=== PATIENT | male | born 1960 | race Caucasian/White ===

== ENCOUNTER 2023-09-30 12:18 | Observation (INO) | payer SELFPAY ==
[2023-09-30] VITALS (53 sets, daily range): BP systolic 137–188; BP diastolic 70–102; PULSE 75–104; RESP 12–28; TEMP 36.4–36.9; O2SAT 98
--- NOTE | 2023-09-30 12:15 | RT.EKG_ITS ---
APPROVED REPORT Exam: Resting ECG Reason for Exam: Chest Pain Patient Location: E HR:90 bpm ECG Measurements Heart Rate 90 AXIS ND 174 P 71 QRSd 102 QRS 70 QT 365 T 39 QTc 447 Conclusion Sinus rhythm...normal P axis, V-rate 60- 99 Low voltage, extremity leads...all extremity leads <0.5mV Normal sinus rhythm at a rate of 90 interventricular conduction delay. Normal axis. ND and QTc with in normal limits. Mild left lateral chest wall ST segment depressions. Low voltage limb leads. No prior for comparison. No acute injury pattern.
--- NOTE | 2023-09-30 12:40 | W.ED.GENAD ---
Discharge Plan Discharge Details Chief Complaint: Chest Pain Primary Care Provider: Unknown,Unknown ED Provider: Pipe Wilson Home Meds and New Rx's Prescriptions: No Action No Known Home Meds HPI General Date/Time Provider Initiated Documentation: 09/30/23 12:40. HPI Narrative: MDM Chronic conditions affecting the care of the patient: [] History obtained from an outside historian: [] External record review: [] Diagnostic interpretations performed by me: Per my independent interpretation chest x-ray shows: Per my independent interpretation EKG shows: Normal sinus rhythm at a rate of 90 interventricular conduction delay. Normal axis. AK and QTc within normal limits. Mild left lateral chest wall ST segment depressions. Low voltage limb leads. No prior for comparison. No acute injury pattern. ]Medications: [] Social determinants of health affecting disposition: [] Management discussed with: [] Treatment/interventions considered: [] Response to therapies provided: [] HPI [ ] Exam General: Well-appearing in no acute distress speaking in complete sentences. Head: Normocephalic, atraumatic. Eye:[Pupils equal, round reactive to light.] Extraocular eye movements intact. No conjunctival injection. No scleral icterus. Ear, nose, mouth, throat: Grossly normal inspection. Normal voice, handling secretions normally. Neck: Trachea midline. Cardiovascular: Well-perfused distal extremities. Respiratory: Nonlabored respiration. Gastrointestinal: Nondistended abdomen. Musculoskeletal: No edema. Moving all 4 extremities spontaneously. Skin: Normal for age and race, grossly normal temperature and turgor. No acute rash. Neurologic: Alert and appropriate, no apparent acute deficits. Psychiatric: Mood and manner are appropriate. Grooming and personal hygiene are appropriate. Related Data Home Medications Medication Instructions Recorded Confirmed Unknown [No Known Home Meds] 11/18/15 09/30/23 Allergies Allergy/AdvReac Type Severity Reaction Status Date / Time No Known Allergies Allergy Unverified 09/30/23 12:26 General Stated Complaint: Chest Pain ANYI: 2 Course Vital Signs Vital signs: Vital Signs Temperature 36.4 C 09/30/23 12:20 Pulse 93 H 09/30/23 12:20 Respiratory Rate 28 H 09/30/23 12:20 Blood Pressure 188/93 H 09/30/23 12:20 Pulse Oximetry 98 09/30/23 12:20 Temperature 36.4 C 09/30/23 12:20 Pulse 93 H 09/30/23 12:20 Pulse 88 09/30/23 12:34 Respiratory Rate 17 09/30/23 12:34 Respiratory Effort Normal 09/30/23 12:26 Blood Pressure 188/93 H 09/30/23 12:20 Pulse Oximetry 98 09/30/23 12:20 Pain Level 5 09/30/23 12:20 Medical Decision Making Quality:SDOH Health Related Social Needs: No Data to Display PFSH All Active Problems (Updated 03/03/19 @ 12:03 by Annelise Bull NP) Dupuytren's contracture of left hand (Chronic) Excessive drinking of alcohol (Chronic) Chewing tobacco use (Chronic) Reducible left inguinal hernia (Chronic) Surgical History (Updated 03/03/19 @ 09:58 by Annelise Bull NP) S/P vasectomy (~1997) Family History (Updated 03/03/19 @ 10:08 by Annelise Bull NP) Mother Hypertension Dementia Father , at 56 of lung cancer Lung cancer Sister Colon cancer Cervical cancer Sister No problems noted. Son No problems noted. Son No problems noted. Son No problems noted. Daughter No problems noted. Maternal Grandfather No problems noted. Maternal Grandmother No problems noted. Paternal Grandfather No problems noted. Paternal Grandmother No problems noted. Social History (Updated 02/25/19 @ 07:18 by Ray Brown) Smoking/Tobacco Use Status: Current every day Tobacco Type: smokeless tobacco Smokeless tobacco user: snuff Quit status: considering quitting Smoking risk assessment performed?: Yes Alcohol Intake: current Alcohol Intake frequency: 3 or more drinks per day Alcohol type: beer Drug use: Never Substance use type: does not use Caregiver/Support person: No Household members: family Housing: house Communication Needs: None Pets and animals: Yes Pets and animals: dog(s) Sexually active: No Current gender identity: female What is your relationship status?: How often do you talk on the phone with friends or family?: three or more times per week How often do you get together with friends or relatives?: twice per week How often do you attend oriental orthodox or samaritan services?: decline to answer Do you belong to any clubs or organized social groups?: no Panel score (0-1 are the most socially isolated patients): 1 What type of physical activity do you participate in: decline to answer Duration: decline to answer Frequency: decline to answer /Islam: Yazdanism Special needs: No Seatbelt use: always Helmet use: Yes Helmet use: sometimes PAWSS Have you Been Recently Intoxicated or Drunk Within the Last 30 days?: Yes Have you Ever Experienced Previous Episodes of Alcohol Withdrawal?: Yes Have you ever Experienced Withdrawal Seizures?: No Have you ever Experienced Delirium Tremens(DT)s?: No Have you ever undergone Alcohol Rehabilitation Treatment (i.e, inpt ot outpatient treatment programs)?: No Have you ever Experienced Blackouts?: No Have you ever Combined Alcohol with other Downers within the last 90 days?: No Have you ever Combined Alcohol with any other Substance of Abuse during the last 90 days?: No Positive Blood Alcohol level on Presentation? [PCS.BAL]: No Evidence of Increased Autonomic Activity (i.e. HR>120, tremor, sweating, agitation, nausea)?: No Result: 2
--- NOTE | 2023-09-30 12:45 | DI.RAD_ITS ---
Exam(s) XR PORTABLE CHEST AP EXAM: XR PORTABLE CHEST AP CLINICAL HISTORY: CP. TECHNIQUE: 2D digital imaging was performed. COMPARISON: CT CT CHEST PE CTA from 09/30/2023 FINDINGS: Single AP portable view. Heart size is normal. Mediastinum not widened. Prominent area of infiltrate versus mass in the left lower lobe also extending up into the superior s egment of the left lower lobe. There appears to be some pleural plaque on the right side as well as some milder infiltrate on the right side. No obvious pleural effusion on the right side. Small pleu ral effusion on the left side. IMPRESSION: Large left lower lobe mass versus consolidation.Small amount of infiltrate in the right lung. Calcified pleural plaques evident. DATA REPOSITORY: RADIATION DOSE DELIVERED:
--- NOTE | 2023-09-30 12:48 | W.EDPROG ---
Date of service: 09/30/23 Time of Service: 12:49 Medical Decision Making I initially signed up to evaluate this patient however he was seen by the advanced practitioner. Please see her note for details. His ECG was nonischemic. Quality:SDOH Health Related Social Needs: No Data to Display Discharge Plan Discharge Details Chief Complaint: Chest Pain Primary Care Provider: Unknown,Unknown ED Provider: Dalia Gaxiola Home Meds and New Rx's Prescriptions: No Action No Known Home Meds
[2023-09-30 12:55] LABS: Abs Immature Grans 0.04 10^3/uL (0.0-0.06); Absolute Basophil Count 0.03 10^3/uL (0.0-0.2); Absolute Lymphocyte Count 0.57 10^3/uL (1.2-3.4); Absolute Monocyte Count 0.77 10^3/uL (0.1-0.8); Absolute Neutrophil Count 6.49 10^3/uL (1.2-6.7); Basophils % 0.4 %; HCT 43.7 % (40.0-50.0); HGB 15.6 g/dL (13.5-17.5); Immature Grans % 0.5 %; Lymphocytes % 7.2 %; MCH 33.8 pg (27.0-33.0); MCHC 35.7 % (32.0-36.0); MCV 95 fL (80-95); MPV 9.9 fL (8.0-11.0); Monocytes % 9.7 %; Neutrophils % 82.2 %; Platelet Count 208 10^3/uL (130-400); RBC 4.62 10^6/uL (4.36-5.78); RDW 11.9 % (11.8-14.1); RDW-SD 41.6 fL
--- NOTE | 2023-09-30 12:57 | ED.GENADUL_ITS ---
Discharge Plan Discharge Details Chief Complaint: Chest Pain Primary Care Provider: Unknown,Unknown ED Provider: Dalia Gaxiola Home Meds and New Rx's Prescriptions: No Action No Known Home Meds HPI General Date/Time Provider Initiated Documentation: 09/30/23 12:40 . HPI Narrative: Bravo is a 63-year-old male with history of excessive EtOH use (6-9 12-oz beers daily) who presents to the emergency department for evaluation of right arm pain. He reports he has had mild throbbing right arm pain since yesterday, waxes and wanes in intensity starting today. This is accompanied by occasional dizziness with sweating, which resolves with a cool cloth on his head. Pain and dizziness is not elicited with movements or exertion. He denies associated headache, nausea/vomiting, chest pain, shortness of breath, nausea/vomiting, abdominal pain, change in bowel or bladder function. Reports he did take 100 mg of aspirin this morning. Denies history of GI bleed, diagnosed hypertension or hyperlipidemia. Denies family history of cardiac disease. Denies tobacco use. 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 Related Data Home Medications Medication Instructions Recorded Confirmed Unknown [No Known Home Meds] 11/18/15 09/30/23 Allergies Allergy/AdvReac Type Severity Reaction Status Date / Time No Known Allergies Allergy Unverified 09/30/23 12:26 General Stated Complaint: Chest Pain ANYI: 2 Review of Systems Narrative: see HPI Exam Const General: cooperative, comfortable and no acute distress Nutritional Appearance: cachectic Eyes Sclera: sclerae normal Resp Effort & Inspection: normal respiratory effort and able to speak in complete sentences Auscultation: clear to auscultation bilaterally Cardio Rate: regular rate Rhythm: regular rhythm Pulses: radial pulses present GI Inspection: normal to inspection Palpation: soft and nontender Extrem Right upper extremity: normal to inspection, full ROM, normal capillary refill and no joint enlargement; no edema Course Vital Signs Vital signs: Vital Signs Temperature 36.4 C 09/30/23 12:20 Pulse 93 H 09/30/23 12:20 Respiratory Rate 28 H 09/30/23 12:20 Blood Pressure 188/93 H 09/30/23 12:20 Pulse Oximetry 98 09/30/23 12:20 Temperature 36.4 C 09/30/23 12:20 Pulse 87 06/30/24 12:46 Pulse 85 09/30/23 12:46 Respiratory Rate 23 09/30/23 12:46 Respiratory Effort Normal 09/30/23 12:26 Blood Pressure 173/82 H 09/30/23 12:46 Blood Pressure Mean 111 09/30/23 12:46 Pulse Oximetry 98 09/30/23 12:20 Pain Level 8 09/30/23 12:36 Lab/Test Results Lab/Test Results: Laboratory Tests Range/Units 09/30/23 12:31 Troponin I Cancelled Medical Decision Making Bravo is a 63-year-old male with history of excessive EtOH use (6-9 12-oz beers daily) who presents to the emergency department for evaluation of right arm pain. He reports he has had mild throbbing right arm pain since yesterday, waxes and wanes in intensity starting today. This is accompanied by occasional dizziness with sweating, which resolves with a cool cloth on his head. Pain and dizziness is not elicited with movements or exertion. He denies associated headache, nausea/vomiting, chest pain, shortness of breath, nausea/vomiting, abdominal pain, change in bowel or bladder function. Reports he did take 100 mg of aspirin this morning. Denies history of GI bleed, diagnosed hypertension or hyperlipidemia. Denies family history of cardiac disease. Denies tobacco use. 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 Physical exam reassuring. Patient is alert and oriented, no acute distress. Easy work of breathing, lung sounds clear bilaterally. Normal heart sounds. Abdomen soft, nondistended, nontender palpation. No pedal edema. Full painless range of motion of arm, pain is not elicited with movement. 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 No tenderness to palpation of arm; pain is nonreproducible. DDx includes but is not limited to: ACS, muscle strain, referred pain from gallbladder or diaphragm, cervical radiculopathy I independently interpreted the following tests: EKG reassuring, normal sinus rhythm rate 90, no changes consistent with acute ischemia. CBC and lipase reassuring. D-dimer very elevated. CMP notable for hyponatremia with sodium 129 and total bili 2.71 with relatively reassuring AST/ALT/alk phos. Initial troponin negative. CTA performed to evaluate elevated D-dimer. CTA negative for PE, however evidence of asbestos pleural disease and large complex loculated fluid collection noted in left pleural space. Pleural biopsy indicated. While in the emergency department Bravo received 243 mg of aspirin, as he already took 100 mg this morning. 1445: Call placed to [facility] for cardiology consult 1515: Case with Isha Condon, cardiology MANA[employer]. Reviewed patient's history, labs, diagnostic imaging results. She is agreeable with plan to trend troponins and admit for echo/stress test. Patient and his family are agreeable with plan of care. He denies history of DTs with alcohol withdrawal in the past, however his family does report he has had seizures in the past. [facility] protocol initiated. 1535: Discussed case with general surgeon Dr Bowman; fluid analysis cannot be performed here. Recommends follow-up with [facility] pulmonology for evaluation. Handoff report given to Marylou Renee, bryan HAILEY. Medical Records Medical records narrative: I did review PCP visit from 03/03/19. No new diagnoses made at that time. He was advised to have colonoscopy as he had not had one yet. Imaging Data Radiologic Study: Radiologist's impression: IMPRESSION: 1. Examination negative for pulmonary emboli, thoracic aortic a neurysm or dissection. 2. Evidence of asbestosis pleural disease. The left pleural space has a large complex loculated fluid collection. Suggest pleural biopsy. 3. Atelectasis of the left lower lobe. Quality:SDOH Health Related Social Needs: No Data to Display PFSH All Active Problems (Updated 03/03/19 @ 12:03 by Annelise Bull NP) Dupuytren's contracture of left hand (Chronic) Excessive drinking of alcohol (Chronic) Chewing tobacco use (Chronic) Reducible left inguinal hernia (Chronic) Surgical History (Updated 03/03/19 @ 09:58 by Annelise Bull NP) S/P vasectomy (~1997) Family History (Updated 03/03/19 @ 10:08 by Annelise Bull NP) Mother Hypertension Dementia Father , at 56 of lung cancer Lung cancer Sister Colon cancer Cervical cancer Sister No problems noted. Son No problems noted. Son No problems noted. Son No problems noted. Daughter No problems noted. Maternal Grandfather No problems noted. Maternal Grandmother No problems noted. Paternal Grandfather No problems noted. Paternal Grandmother No problems noted. Social History (Updated 02/25/19 @ 07:18 by Ray Brown) Smoking/Tobacco Use Status: Current every day Tobacco Type: smokeless tobacco Smokeless tobacco user: snuff Quit status: considering quitting Smoking risk assessment performed?: Yes Alcohol Intake: current Alcohol Intake frequency: 3 or more drinks per day Alcohol type: beer Drug use: Never Substance use type: does not use Caregiver/Support person: No Household members: family Housing: house Communication Needs: None Pets and animals: Yes Pets and animals: dog(s) Sexually active: No Current gender identity: female What is your relationship status?: How often do you talk on the phone with friends or family?: three or more times per week How often do you get together with friends or relatives?: twice per week How often do you attend zoroastrianism or orthodoxy services?: decline to answer Do you belong to any clubs or organized social groups?: no Panel score (0-1 are the most socially isolated patients): 1 What type of physical activity do you participate in: decline to answer Duration: decline to answer Frequency: decline to answer /Gnosticism: Presybeterian Special needs: No Seatbelt use: always Helmet use: Yes Helmet use: sometimes PAWSS Have you Been Recently Intoxicated or Drunk Within the Last 30 days?: Yes Have you Ever Experienced Previous Episodes of Alcohol Withdrawal?: Yes Have you ever Experienced Withdrawal Seizures?: No Have you ever Experienced Delirium Tremens(DT)s?: No Have you ever undergone Alcohol Rehabilitation Treatment (i.e, inpt ot outpatient treatment programs)?: No Have you ever Experienced Blackouts?: No Have you ever Combined Alcohol with other Downers within the last 90 days?: No Have you ever Combined Alcohol with any other Substance of Abuse during the last 90 days?: No Positive Blood Alcohol level on Presentation? [PCS.BAL]: No Evidence of Increased Autonomic Activity (i.e. HR>120, tremor, sweating, agitation, nausea)?: No Result: 2
[2023-09-30] MEDS: Aspirin 81 MG CHEW 243 MG CH (13:01)
[2023-09-30 13:14] LABS: ALT 42 U/L (16-63); AST 47 U/L (15-37); Albumin 4.4 g/dL (3.4-5.0); Alkaline Phosphatase 119 U/L (46-116); Anion Gap 12.8 mmol/L (3-11); BUN 5 mg/dL (7-18); Bilirubin, Total 2.71 mg/dL (0.2-1.0); CO2 24.2 mmol/L (21.0-32.0); CREATININE 0.6 mg/dL (0.70-1.30); Calcium 9.4 mg/dL (8.5-10.1); Chloride 92 mmol/L (98-107); ETHANOL BLOOD 19.3 mg/dL (<10); Glucose 115 mg/dL (74-106); Lipase 24 U/L (16-77); Potassium 3.4 mmol/L (3.5-5.1); Sodium 129 mmol/L (136-145); Total Protein 8.9 g/dL (6.4-8.2); Troponin I < 50 ng/L (< or =60)
[2023-09-30 13:33] LABS: D-Dimer 1469 ng/mlFEU (<500)
--- NOTE | 2023-09-30 13:45 | DI.CT_ITS ---
Exam(s) CT CHEST PE CTA EXAM: CT CHEST PE CTA CLINICAL HISTORY: R shoulder pain, dizzy. TECHNIQUE: Imaging Protocol: Axial CT angiography was performed with multi-slice acquisition and mu lti-planar and/or 3D reconstructions. CONTRAST MATERIAL: Intravenous: Omnipaque 350 contrast volume:75 mL COMPARISON: No exams were available for comparison FINDINGS: Tracheobronchial tree: Patent where visualized. Pulmonary parenchyma: Areas of compressive atelectasis are seen in the left lower lobe secondary to t he pleural fluid collection. Please see below under pleura. No architectural distortion. Pulmonary Arteries: No evidence of filling defect to suggest pulmonary emboli. Mediastinum and Apryl: No dominant adenopathy or fluid collection. The esophagus is unremarkable. Visualized thyroid gland: Unremarkable. Pleura: There is an encapsulated fluid collection in the posterior left hemithorax measuring 12 cm tr ansverse by 6.7 cm AP x 19 cm craniocaudad. There is partial calcification of the wall. Atelectatic changes are seen in the adjacent left lower lobe. There are calcified pleural plaques bilaterally. There is a tiny right pleural effusion. No pneumothorax is seen. Heart: The heart is not dilated. Coronary artery calcification is present. No pericardial effusion. Aorta: Thoracic aorta non-dilated. No evidence of dissection. Atherosclerotic calcification is presen t. Upper abdomen: Unremarkable. Soft tissues: Unremarkable. Bones: Within normal limits for the patient's age. IMPRESSION: 1. No evidence of pulmonary embolism, thoracic aortic dissection or aneurysm. 2. There is an in capsulated fluid collection in the left hemithorax posteriorly measuring 12.0 cm x 6.7 cm x 19 cm. Pulmonary consult is recommended. 3. Calcified pleural plaques which can be seen with prior asbestos exposure. 4. Compressive atelectasis in the left lower lobe. RADIATION DOSE DELIVERED: 288.43mGy.cm Total DLP DATA REPOSITORY: All CT scans at this facility are submitted to the National Radiology Data Registry (NRDR) Dose Index Registry (DIR) with the [employer] (ACR). RADIATION OPTIMIZATION: All CT scans at this facility use at least one of these dose optimization te chniques: automated exposure control; mA and/or kV adjustment per patient size (includes targeted exa ms where dose is matched to clinical indication); or iterative reconstruction.
--- NOTE | 2023-09-30 14:12 | DI.VRAD_ITS ---
PROCEDURE INFORMATION: Exam: XR Chest Exam date and time: 09/30/2023 1:05 PM Age: 63 years old Clinical indication: Other: Chest pain TECHNIQUE: Imaging protocol: Radiologic exam of the chest. Views: 1 view. COMPARISON: No relevant prior studies available. FINDINGS: Lungs: Consolidation in the left lower lobe. Tree-in-bud appearance in the right lower lobe. Pleural spaces: Tiny right and small left subpulmonic pleural effusions. No pneumothorax. Heart/Mediastinum: Unremarkable. No cardiomegaly. Bones/joints: Unremarkable. IMPRESSION: 1. Left lower lobe pneumonia with possible transbronchial spread of the right lower lobe. 2. Small left and tiny right subpulmonic pleural effusions. Dictated and Authenticated by: Jacky Griffith MD. Ordering:KAYLEY Betancur MD
[2023-09-30] MEDS: Omnipaque 350 MG/ML 100 ML BTL 75 ML IJ (14:39)
[2023-09-30] MEDS: Normal Saline - Diluent 50 ML VIAL IJ (14:40)
[2023-09-30] MEDS: Normal Saline Flush 10 ML SYR IVP ×2 (14:41→23:04)
--- NOTE | 2023-09-30 15:08 | DI.VRAD_ITS ---
PROCEDURE INFORMATION: Exam: CTA Chest With Contrast Exam date and time: 09/30/2023 2:41 PM Age: 63 years old Clinical indication: Other: R shoulder pain, dizzy TECHNIQUE: Imaging protocol: Computed tomographic angiography of the chest with contrast. Exam focused on the arteries. 3D rendering (Not supervised by radiologist): MIP and/or 3D reconstructed images were created by the technologist. Radiation optimization: All CT scans at this facility use at least one of these dose optimization techniques: automated exposure control; mA and/or kV adjustment per patient size (includes targeted exams where dose is matched to clinical indication); or iterative reconstruction. Contrast material: OMNI 350; Contrast volume: 75 ml; Contrast route: INTRAVENOUS (IV); COMPARISON: CR XR PORTABLE CHEST AP 09/30/2023 1:05 PM FINDINGS: Pulmonary arteries: Normal. No pulmonary emboli. Aorta: Unremarkable. No aortic aneurysm. No aortic dissection. Lungs: There is near-complete collapse of the left lower lobe. No other consolidations. Pleural spaces: Loculated left pleural effusion occupying most of the left lower lobe area. There are focal calcifications within the thickened pleura. Heterogeneous appearance and enhancement of the internal septum. There is calcification along the medial and diaphragmatic surface of the right pleural space. There is also focal calcification along the anterior pleural surface of the right upper lobe. Heart: No cardiomegaly. There are dense calcifications within the proximal left anterior descending coronary artery. No pericardial effusion. Lymph nodes: Unremarkable. No enlarged lymph nodes. Bones/joints: Mild degenerative changes of the osseous structures.. No acute fracture. Soft tissues: Unremarkable. IMPRESSION: 1. Examination negative for pulmonary emboli, thoracic aortic aneurysm or dissection. 2. Evidence of asbestosis pleural disease. The left pleural space has a large complex loculated fluid collection. Suggest pleural biopsy. 3. Atelectasis of the left lower lobe. Dictated and Authenticated by: Jacky Griffith MD. Ordering:JUANITO Gómez MD
[2023-09-30] MEDS: Lidocaine 5% Patch 1 PATCH TP (16:13)
[2023-09-30 16:19] LABS: Calculated LDL 47 mg/dL (<100); Cholesterol 127 mg/dL (<200); HDL Cholesterol 75 mg/dL (40-60); Triglyceride 29 mg/dL (<150)
[2023-09-30 16:21] LABS: Troponin I < 50 ng/L (< or =60)
[2023-09-30 17:00] LABS: Magnesium 1.8 mg/dL (1.8-2.4)
[2023-09-30] MEDS: Normal Saline 1,000 ML 1000 ML IV (17:22)
[2023-09-30] MEDS: cefTRIAXone 2 GM/50 ML BAG IVPB (17:24)
--- NOTE | 2023-09-30 17:25 | HPE_ITS ---
Date of service: 09/30/23 Time of Service: 17:25 Assessment and Plan Assessment and plan (1) Cervical radiculopathy: Status: Acute Assessment and plan: patient has symptoms of a lower cervical/upper thoracic radiculopathy on the right that begins from the suprascapular area of right shoulder and radiates down the right arm to ring finger and little finger not associated w/ any weakenss of his right hand or arm. Patient was being evaluated for ACS while in the emergency room by the PA and had normal EKG and two normal troponin I levels. Patient is physically active renovating homes, still does electrical work and has had no exertional CP or exertional dyspnea. His onset of his right shoulder and arm pain began around 9 to 10 pm last night and has been constant and unabated. Furthermore he has had no symptoms of pneumonia such as sputum production, fevers, rigors and labs show normal WBC and normal procalcitonin. CTA did not show a P.E. or lung consolidation other than total collapse of his LLL caused by loculated effusion. I will treat his pain w/ ketorolac and gabapentin and Tylenol and get MRI of c spine and T spine in the morning looking for degenerative disc disease but more importantly to rule out a metastatic lesion to the spine. 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 May not be able to perform here at [facility] as we have no pathologist on site and no longer have pulmonary services. I will consult surgery on this and if they can not provide such services, patient will be [place] [facility]. (5) Elevated bilirubin: Status: Acute Assessment and plan: likely d/t alcoholic liver disease however will get CT imaging of abdomen/pelvis to rule out cirrhosis/alcoholic fatty liver vs infiltrative process such as cancer (6) Alcoholism: Status: Acute Assessment and plan: patient has hx of at least two episodes of acute alcohol withdrawal associated w/ seizures during periods of forced abstinence. Last one two years ago, prior episode many years ago when his children were small. I asked the ED provider to start phenobarbital prophylactically at 6 mg/kg dosing. She graciously obliged even though patient is not going through withdrawal yet. CALISTA was 19.3 mg/dL on admission. (7) Hyponatremia: Status: Acute Assessment and plan: likely beer potomania; limit fluids to <=1000 mL per day, monitor electrolytes; replace K; no need for iv saline or hypertonic saline; patient is not encephalopathy or having seizures. If encephalopathy and sodium is dropping then there would be need to more urgently correct sodium. (8) Hypokalemia: Status: Acute Assessment and plan: correct w/ oral supplements and monitor (9) DVT prophylaxis: Status: Acute Assessment and plan: I ordered SCD in the event that surgery decides to perform thoracentesis, I have avoided enoxaparin complication. 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 This is also associated with some numbness and tingling in the fourth and fifth digits of his right hand. Patient states that it has hurt all night long it has been a constant ache in the right shoulder and arm not associate with any chest pain or pressure nor any dyspnea nor any palpitations. He has a nonproductive cough denies any sputum production. 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 In the emergency room he was worked up for ACS including an EKG that showed no ischemia and 2 negative troponin levels. The advanced practice provider in the emergency department [place] [facility] [place] who agreed with the PA that was reasonable to admit the patient for an echocardiogram and a stress test. However the patient has no exertional component to his discomfort and has been no waxing and waning of his discomfort in his right arm and no EKG changes and no troponin changes. Pain has been present constantly since then. He went under CTA of the chest to rule out aortic dissection and to rule out pulmonary embolism neither which were seen however he was found to have bilateral pleural thickening left more so than the right with calcifications consistent with asbestosis. He was also found to have near complete collapse of his left lower lobe due to a large loculated left pleural effusion. Hospital service was contacted to admit him for treatment of pneumonia. However he has had no sputum production and he has no fever and no elevated white count and his procalcitonin level is normal. He is not hypoxemic. He was mildly tachypneic and tachycardic on arrival to the hospital. He has a known history of alcoholism drinking 9-12 beers a night and has had prior alcohol withdrawal seizures last one being about 2 years ago when he was ill and had a forced absence of alcohol. Patient was started on Rocephin and azithromycin emergency department for alleged pneumonia. Patient will now be admitted on observation status while we workup his cervical radiculopathy. Dr. Dionicio Bowman, general surgeon, was contacted by the emergency department to discuss thoracentesis and he felt that this is more advanced than can be worked up [facility] he feels this is a fibrothorax possibly chronic empyema however patient gives no history of chronic lung infections. I think it is more likely that his pleural effusion is secondary to his asbestosis and pleural plaques. In any case patient needs a pleural biopsy as well as pleural thoracentesis. Will admit him tonight on observation to treat his radicular pain and obtain an MRI of his cervical and upper thoracic spine. He will then be referred to [facility] [place] for follow-up for pleural biopsy and thoracentesis versus a referral to thoracic surgery for VATS procedure. Review of Systems All systems reviewed & are unremarkable except as noted in HPI and below Constitutional Constitutional: Denies chills, Denies fever(s), Denies poor appetite and Denies weight loss Eyes Eyes: Reports system reviewed and no additional complaints, except as documented ENT Ears, Nose, Mouth, and Throat: Reports system reviewed and no additional complaints, except as documented and Denies neck pain Cardiovascular Cardiovascular: Reports as per HPI, Denies chest pain, Denies chest pain with activity, Denies rapid heart rate, Denies leg edema, Denies lightheadedness, Denies dyspnea, Denies dyspnea on exertion and Denies orthopnea Respiratory Respiratory: Denies chest congestion, Reports cough, Denies hemoptysis, Denies excessive phlegm production, Denies pain with cough, Denies dyspnea, Denies dyspnea on exertion and Denies wheezing Gastrointestinal Gastrointestinal: Reports system reviewed and no additional complaints, except as documented Genitourinary Genitourinary: Reports system reviewed and no additional complaints, except as documented Musculoskeletal Musculoskeletal: Reports as per HPI, Denies neck pain, Reports numbness, Reports radiating pain into limb and Reports tingling Integumentary/Breasts Skin/Breast: Reports system reviewed and no additional complaints, except as documented Neurologic Neurologic: Reports as per HPI, Reports numbness and Reports tingling Endocrine Endocrine: Reports system reviewed and no additional complaints, except as documented Hematologic/Lymphatic Hematologic/Lymphatic: Reports system reviewed and no additional complaints, except as documented and Denies lymphadenopathy Allergic/Immunologic Allergic/Immunologic: Reports system reviewed and no additional complaints, except as documented and Denies wheezing PFSH All Active Problems (Updated 09/30/23 @ 18:53 by Saals Chow MD) DVT prophylaxis (Acute) Hypokalemia (Acute) Hyponatremia (Acute) Alcoholism (Acute) Elevated bilirubin (Acute) Thoracic radiculopathy (Acute) Cervical radiculopathy (Acute) Pulmonary asbestosis (Acute) Loculated pleural effusion (Acute) Dupuytren's contracture of left hand (Chronic) Excessive drinking of alcohol (Chronic) Chewing tobacco use (Chronic) Reducible left inguinal hernia (Chronic) Surgical History S/P vasectomy (~1997) Family History Mother Hypertension Dementia Father , at 56 of lung cancer Lung cancer Sister Colon cancer Cervical cancer Sister No problems noted. Son No problems noted. Son No problems noted. Son No problems noted. Daughter No problems noted. Maternal Grandfather No problems noted. Maternal Grandmother No problems noted. Paternal Grandfather No problems noted. Paternal Grandmother No problems noted. Social History Smoking/Tobacco Use Status: Current every day Tobacco Type: smokeless tobacco Smokeless tobacco user: snuff Quit status: considering quitting Smoking risk assessment performed?: Yes Alcohol Intake: current Alcohol Intake frequency: 3 or more drinks per day Alcohol type: beer Drug use: Never Substance use type: does not use Caregiver/Support person: No Household members: family Housing: house Communication Needs: None Pets and animals: Yes Pets and animals: dog(s) Sexually active: No Current gender identity: female What is your relationship status?: How often do you talk on the phone with friends or family?: three or more times per week How often do you get together with friends or relatives?: twice per week How often do you attend methodist or taoist services?: decline to answer Do you belong to any clubs or organized social groups?: no Panel score (0-1 are the most socially isolated patients): 1 What type of physical activity do you participate in: decline to answer Duration: decline to answer Frequency: decline to answer /Anabaptist: Catholic Special needs: No Seatbelt use: always Helmet use: Yes Helmet use: sometimes Meds Allergies and Home Medications Allergies Allergy/AdvReac Type Severity Reaction Status Date / Time No Known Allergies Allergy Unverified 09/30/23 12:26 Home Medications Medication Instructions Recorded Confirmed Type Unknown [No Known Home Meds] 11/18/15 09/30/23 History Exam Narrative Exam Narrative: Middle age white male lying recumbent in the ED on a guerney, no acute distress, not tachypneic, able to talk in prolonged conversation w/out dyspnea HEENT: unremarkable Neck: no thyhromegaly and no adenopathy or JVD, normal carotid pulses Lungs: diminished breath sounds over left lower thorax; clear on the right and clear anteriorly Heart: RRR, no murmur or rub or gallop Abdomen: soft, nondistended, normal bowel sounds, no organomegaly Extremities: left hand w Dupuytren's contracture of the left 3,4,5th digits, otherwise he has intact hand and arm strength; I could not worsen his right arm pain w/ range of motion testing. No decreased strength in and no sensory loss to light touch over his arms or legs No cervical supraclavicular or axillary or inguinal lymphadenopathy. Results Labs 09/30/23 12:31 09/30/23 12:31 Labs: Laboratory Results - last 24 hr 09/30/23 09/30/23 09/30/23 12:31 12:31 15:47 WBC 7.90 RBC 4.62 Hgb 15.6 Hct 43.7 MCV 95 MCH 33.8 H MCHC 35.7 RDW 11.9 Plt Count 208 MPV 9.9 Immature Gran % 0.5 Neutrophils % 82.2 Lymphocytes % 7.2 Monocytes % 9.7 Eosinophils % 0.0 Basophils % 0.4 Nucleated RBC % 0.0 Absolute Neutrophils 6.49 Absolute Lymphocytes 0.57 L Absolute Monocytes 0.77 Absolute Eosinophils 0.00 Absolute Basophils 0.03 D-Dimer 1469 H VBG Lactate Sodium 129 L Potassium 3.4 L Chloride 92 L Carbon Dioxide 24.2 Anion Gap 12.8 H BUN 5 L Creatinine 0.6 L Est GFR (CKD-EPI 2020) 107.80 Glucose 115 H Calcium 9.4 Magnesium Total Bilirubin 2.71 H AST 47 H ALT 42 Alkaline Phosphatase 119 H Troponin I Cancelled < 50 < 50 Total Protein 8.9 H Albumin 4.4 Triglycerides 29 Total Cholesterol 127 LDL Cholesterol, Calc 47 HDL Cholesterol 75 Lipase 24 Ethyl Alcohol 19.3 H 09/30/23 16:35 WBC RBC Hgb Hct MCV MCH MCHC RDW Plt Count MPV Immature Gran % Neutrophils % Lymphocytes % Monocytes % Eosinophils % Basophils % Nucleated RBC % Absolute Neutrophils Absolute Lymphocytes Absolute Monocytes Absolute Eosinophils Absolute Basophils D-Dimer VBG Lactate 1.0 Sodium Potassium Chloride Carbon Dioxide Anion Gap BUN Creatinine Est GFR (CKD-EPI 2020) Glucose Calcium Magnesium 1.8 Total Bilirubin AST ALT Alkaline Phosphatase Troponin I Total Protein Albumin Triglycerides Total Cholesterol LDL Cholesterol, Calc HDL Cholesterol Lipase Ethyl Alcohol Last Vital Signs Temp 36.4 C 09/30/23 12:20 Pulse 91 H 09/30/23 15:00 Resp 25 H 09/30/23 15:10 BP 181/87 H 09/30/23 15:00 Pulse Ox 98 09/30/23 12:20 PAWSS Have you Been Recently Intoxicated or Drunk Within the Last 30 days?: Yes Have you Ever Experienced Previous Episodes of Alcohol Withdrawal?: Yes Have you ever Experienced Withdrawal Seizures?: No Have you ever Experienced Delirium Tremens(DT)s?: No Have you ever undergone Alcohol Rehabilitation Treatment (i.e, inpt ot outpatient treatment programs)?: No Have you ever Experienced Blackouts?: No Have you ever Combined Alcohol with other Downers within the last 90 days?: No Have you ever Combined Alcohol with any other Substance of Abuse during the last 90 days?: No Positive Blood Alcohol level on Presentation? [PCS.BAL]: No Evidence of Increased Autonomic Activity (i.e. HR>120, tremor, sweating, agitation, nausea)?: No Result: 2 Time Spent Time spent with Patient: 55-74 minutes Time was spent: preparing to see the patient(eg.review tests), obtaining and/or reviewing separately otained hiistory, ordering medications,tests, procedures, referring, communicating with other health child care centre manager, indepentently interpreting results, counseling the patient and care coordination
[2023-09-30] MEDS: AZITHROMYCIN 500 MG in Normal Saline 250 ML 250 MG IVPB (17:32)
[2023-09-30 17:43] LABS: Procalcitonin < 0.1 ng/mL
[2023-09-30 17:58] LABS: Lab Add On Test DONE
[2023-09-30 18:16] LABS: ESR 29 mm/hr (0-20)
[2023-09-30 18:23] LABS: C-Reactive Protein < 0.50 mg/dL (<or=0.5)
[2023-09-30 19:06] LABS: Bilirubin Negative (Negative); Blood Trace-intact (Negative); Clarity Clear (Clear); Glucose Negative (Negative); Ketones 15 mg/dL (Negative); Leukocyte Esterase Negative (Negative); Nitrite Negative (Negative); Specific Gravity 1.015 (1.005-1.025)
[2023-09-30 19:20] LABS: Bacteria Negative HPF (Negative); C & S Indicated? No; Crystals Negative HPF (Negative); Epithelial Cells Negative HPF (Negative); Mucus Negative (Negative); RBC 0-2 HPF (0-2); WBC 0-2 HPF (0-5)
[2023-09-30] MEDS: Ketorolac 30 MG/ML VIAL IVP (19:28)
[2023-09-30] MEDS: Acetaminophen 500 MG TAB 1000 MG PO (19:29)
[2023-09-30] MEDS: Potassium Chloride 20 MEQ TABCR 40 MEQ PO (19:29)
[2023-09-30] MEDS: Pantoprazole 40 MG TABCR PO (19:29)
[2023-09-30] MEDS: Gabapentin 100 MG CAP PO (19:30)
[2023-09-30] MEDS: Nicotine 21 MG/24 HR PATCH TD (19:45)
--- NOTE | 2023-09-30 20:04 | W.SURGCON ---
Date of service: 09/30/23 Time of Service: 20:00 Assessment and Plan Assessment and plan (1) Fibrothorax: Status: Acute Assessment and plan: 63-year-old man with an incidental, left?sided fluid collection that I suspect is a chronic empyema that has evolved into a likely fibrothorax scenario. Seems to be pretty asymptomatic clinically. It certainly is not the reason he is presenting to the hospital. Nonetheless, my recommendation to the ED remains the same as my recommendation to the hospitalist service: Thoracic surgery consultation. This likely warrants a VATS decortication. These are often very challenging cases and the chronicity of this case renders the lung very likely to be not expansile after the procedure. Almost a guarantee it is not expansile currently. I do NOT recommend thoracentesis. Not sure the fluid will be simple enough to aspirate anyway and extremely doubtful the lung will re-expand even if the space could be drained. A pleural biopsy can be considered if indicated, but I defer that decision to thoracic surgery. I suspect they will recommend a decortication and the excised pleura can be sent as a specimen at the time of surgery. Overall recommendation: Consult tertiary thoracic surgery History of Present Illness Narrative: I was called by the ER provider to consult on this patient and then asked again to consult by the hospitalist service. The patient is a 63-year-old man who came to the ER because he is having severe arm pain and he was worried he is having a heart attack. The pain has been going on for couple of days. All of the pain and tenderness was in the RIGHT arm. In his workup, an incidental LEFT loculated pleural effusion was noted and for this I was consulted. At the bedside the patient denies any pulmonary symptoms. He has no chest pain. He has no cough. He denies chest trauma. Reportedly drinks a lot of alcohol. PFSH All Active Problems (Updated 09/30/23 @ 21:37 by Faustino Bowman MD) Fibrothorax (Acute) DVT prophylaxis (Acute) Hypokalemia (Acute) Hyponatremia (Acute) Alcoholism (Acute) Elevated bilirubin (Acute) Thoracic radiculopathy (Acute) Cervical radiculopathy (Acute) Pulmonary asbestosis (Acute) Loculated pleural effusion (Acute) Dupuytren's contracture of left hand (Chronic) Excessive drinking of alcohol (Chronic) Chewing tobacco use (Chronic) Reducible left inguinal hernia (Chronic) Surgical History S/P vasectomy (~1997) Family History Mother Hypertension Dementia Father , at 56 of lung cancer Lung cancer Sister Colon cancer Cervical cancer Sister No problems noted. Son No problems noted. Son No problems noted. Son No problems noted. Daughter No problems noted. Maternal Grandfather No problems noted. Maternal Grandmother No problems noted. Paternal Grandfather No problems noted. Paternal Grandmother No problems noted. Social History Smoking/Tobacco Use Status: Current every day Tobacco Type: smokeless tobacco Smokeless tobacco user: snuff Quit status: considering quitting Smoking risk assessment performed?: Yes Alcohol Intake: current Alcohol Intake frequency: 3 or more drinks per day Alcohol type: beer Drug use: Never Substance use type: does not use Caregiver/Support person: No Household members: family Housing: house Communication Needs: None Pets and animals: Yes Pets and animals: dog(s) Sexually active: No Current gender identity: female What is your relationship status?: How often do you talk on the phone with friends or family?: three or more times per week How often do you get together with friends or relatives?: twice per week How often do you attend restorationism or zoroastrianism services?: decline to answer Do you belong to any clubs or organized social groups?: no Panel score (0-1 are the most socially isolated patients): 1 What type of physical activity do you participate in: decline to answer Duration: decline to answer Frequency: decline to answer /Gnosticism: Presybeterian Special needs: No Seatbelt use: always Helmet use: Yes Helmet use: sometimes Exam Narrative Exam Narrative: General: Nontoxic, comfortable and interactive. Nonlabored breathing. He is somewhat thin but appears adequately nourished. Face: Spider telangiectasias present on the face. No noticeable scleral icterus. Neuro: Alert and oriented x 3, I do notice some amount of asterixis. Psych: Reasonable mood and affect, seemingly good insight and understanding into his conditions/history. Chest: Nonlabored breathing, no crepitus, no tenderness, breath sounds are present on both sides. Results Last Vital Signs Temp 98.4 F 09/30/23 18:30 Pulse 98 H 09/30/23 18:30 Resp 20 09/30/23 18:30 BP 137/72 09/30/23 18:30 Pulse Ox 98 09/30/23 18:30 Labs 09/30/23 12:31 09/30/23 12:31 Labs: Laboratory Results - last 24 hr 09/30/23 09/30/23 09/30/23 12:13 12:31 12:31 WBC 7.90 RBC 4.62 Hgb 15.6 Hct 43.7 MCV 95 MCH 33.8 H MCHC 35.7 RDW 11.9 Plt Count 208 MPV 9.9 Immature Gran % 0.5 Neutrophils % 82.2 Lymphocytes % 7.2 Monocytes % 9.7 Eosinophils % 0.0 Basophils % 0.4 Nucleated RBC % 0.0 Absolute Neutrophils 6.49 Absolute Lymphocytes 0.57 L Absolute Monocytes 0.77 Absolute Eosinophils 0.00 Absolute Basophils 0.03 ESR 29 H D-Dimer 1469 H VBG Lactate Sodium 129 L Potassium 3.4 L Chloride 92 L Carbon Dioxide 24.2 Anion Gap 12.8 H BUN 5 L Creatinine 0.6 L Est GFR (CKD-EPI 2020) 107.80 Glucose 115 H Calcium 9.4 Magnesium Total Bilirubin 2.71 H AST 47 H ALT 42 Alkaline Phosphatase 119 H Troponin I Cancelled < 50 C-Reactive Protein < 0.50 Total Protein 8.9 H Albumin 4.4 Triglycerides Total Cholesterol LDL Cholesterol, Calc HDL Cholesterol Lipase 24 Procalcitonin Urine Color Urine Clarity Urine pH Ur Specific Fountain Urine Protein Urine Ketones Urine Blood Urine Nitrite Urine Bilirubin Urine Urobilinogen Ur Leukocyte Esterase Urine RBC Urine WBC Ur Epithelial Cells Urine Crystals Urine Bacteria Urine Mucus Ur Culture Indicated? Urine Glucose Ethyl Alcohol 19.3 H Add-On Test Request DONE 09/30/23 09/30/23 09/30/23 15:47 16:35 18:27 WBC RBC Hgb Hct MCV MCH MCHC RDW Plt Count MPV Immature Gran % Neutrophils % Lymphocytes % Monocytes % Eosinophils % Basophils % Nucleated RBC % Absolute Neutrophils Absolute Lymphocytes Absolute Monocytes Absolute Eosinophils Absolute Basophils ESR D-Dimer VBG Lactate 1.0 Sodium Potassium Chloride Carbon Dioxide Anion Gap BUN Creatinine Est GFR (CKD-EPI 2020) Glucose Calcium Magnesium 1.8 Total Bilirubin AST ALT Alkaline Phosphatase Troponin I < 50 C-Reactive Protein Total Protein Albumin Triglycerides 29 Total Cholesterol 127 LDL Cholesterol, Calc 47 HDL Cholesterol 75 Lipase Procalcitonin < 0.1 Urine Color Yellow Urine Clarity Clear Urine pH 7.0 Ur Specific Fountain 1.015 Urine Protein Negative Urine Ketones 15 H Urine Blood Trace-intact H Urine Nitrite Negative Urine Bilirubin Negative Urine Urobilinogen 2.0 H Ur Leukocyte Esterase Negative Urine RBC 0-2 Urine WBC 0-2 Ur Epithelial Cells Negative Urine Crystals Negative Urine Bacteria Negative Urine Mucus Negative Ur Culture Indicated? No Urine Glucose Negative Ethyl Alcohol Add-On Test Request
[2023-09-30 21:17] LABS: *AMPHETAMINES SCREEN URINE Negative (Negative); *BARBITURATES SCREEN URINE Positive (Negative); *BENZODIAZEPINES SCREEN URINE Negative (Negative); Cannabinoids THC Negative (Negative); Cocaine Screen,Urine Negative (Negative); METHADONE URINE SCREEN Negative (Negative); OPIATES URINE SCREEN Negative (Negative)
[2023-09-30 21:18] LABS: Tricyclic Antidepressants Negative (Negative)
--- NOTE | 2023-10-01 | DI.CT_ITS ---
Exam(s) CT ABDOMEN PELVIS WO EXAM: CT ABDOMEN PELVIS WO CLINICAL HISTORY: elevated transaminases, elevated bilirubin. TECHNIQUE: Imaging Protocol: Axial computed tomography images with coronal and sagittal reformatted images were created and reviewed CONTRAST MATERIAL: Intravenous: none Oral: None COMPARISON: CR,XR XR PORTABLE CHEST AP from 09/30/[address] CHEST PE CTA from 09/30/2023 FINDINGS: VISUALIZED LUNG BASES: Uppermost images of this abdominal CT scan again reveal a large abnormal mass in the left lower lobe region corresponding to what is seen on recent chest x-ray and chest CT scan p erformed yesterday. Main consideration here are 4 neoplasm versus lung abscess. There is no overlyi ng rib destruction. Calcified pleural plaques again noted, more prominent on the opposite-right side . ABDOMEN: There is no ascites. LIVER: Liver is mildly hypodense implying element of steatosis but there are no discrete focal hepati c lesions identified. No dilated intrahepatic ducts. GALLBLADDER/BILIARY: Subtle densities on the dependent wall of the gallbladder are either small calcu li are polyps. Gallbladder does not appear edematous. CBD is not dilated. PANCREAS: No evidence of pancreatic mass nor dilatation of the pancreatic duct. SPLEEN: Spleen is not enlarged. No obvious intrasplenic lesions. Splenic and portal veins are paten t. ADRENALS: There are no significant adrenal masses. KIDNEYS:No cysts evident. No solid renal masses. No calculi nor hydronephrosis. . ABDOMINAL AORTA: Abdominal aorta is not enlarged. LYMPH NODES: ABDOMINAL WALL: There is a prominent left-sided inguinal hernia which contains both large and small b owel loops and extends down to the scrotum. There is no obvious bowel obstruction evident. These marybeth l loops do not appear edematous. A smaller fat only containing inguinal hernia is noted on the right side. GI: There is no evidence of bowel obstruction, free air, nor intra-abdominal abscess. PELVIS: LYMPH NODES: There is no intrapelvic nor inguinal adenopathy. GI: No evidence of appendicitis.No evidence of sigmoid diverticulitis. URINARY BLADDER: No calculi nor obvious masses evident REPRODUCTIVE: Prostate size upper normal. OSSEOUS: Nonacute appearing compression fracture at superior endplate of L1 noted. Advanced disc spa ce narrowing at L4-5 level. Moderate disc space narrowing at L5-S1. No listhesis. IMPRESSION: 1. Large left lung mass. Neoplastic versus lung abscess. Consider interventional radiology referral . 2. Large left inguinal hernia which contains sigmoid and small bowel loops extending down into the lo wer scrotum.. No associated bowel obstruction. 3. Gallbladder polyp versus small calculi. No evidence of acute cholecystitis nor dilatation of the biliary tree. Other findings as above. RADIATION DOSE DELIVERED: 683.55mGy.cm Total DLP DATA REPOSITORY: All CT scans at this facility are submitted to the National Radiology Data Registry (NRDR) Dose Index Registry (DIR) with the [employer] (ACR). RADIATION OPTIMIZATION: All CT scans at this facility use at least one of these dose optimization te chniques: automated exposure control; mA and/or kV adjustment per patient size (includes targeted exa ms where dose is matched to clinical indication); or iterative reconstruction.
[2023-10-01] MEDS: Ketorolac 15 MG/ML VIAL IVP ×2 (01:11→05:05)
[2023-10-01] MEDS: Normal Saline Flush 10 ML SYR IVP ×4 (01:12→20:37)
[2023-10-01 03:18] VITALS: BP 160/91; PULSE 66; RESP 20; TEMP 36.6; O2SAT 100
[2023-10-01] MEDS: traMADol 50 MG TAB 100 MG PO (06:14)
[2023-10-01 07:24] VITALS: BP 141/83; PULSE 68; RESP 17; TEMP 37.1; O2SAT 97
[2023-10-01 07:25] LABS: Abs Immature Grans 0.03 10^3/uL (0.0-0.06); Absolute Basophil Count 0.04 10^3/uL (0.0-0.2); Absolute Eosinophil Count 0.02 10^3/uL (0.0-0.7); Absolute Lymphocyte Count 0.99 10^3/uL (1.2-3.4); Absolute Monocyte Count 1.16 10^3/uL (0.1-0.8); Basophils % 0.6 %; Eosinophils % 0.3 %; HCT 41.5 % (40.0-50.0); HGB 14.3 g/dL (13.5-17.5); Immature Grans % 0.4 %; Lymphocytes % 14.1 %; MCH 33.6 pg (27.0-33.0); MCHC 34.5 % (32.0-36.0); MCV 97 fL (80-95); MPV 10.2 fL (8.0-11.0); Monocytes % 16.5 %; Neutrophils % 68.1 %; Platelet Count 174 10^3/uL (130-400); RBC 4.26 10^6/uL (4.36-5.78); RDW-SD 43.2 fL; WBC 7.04 10^3/uL (4.4-10.8)
[2023-10-01 07:40] LABS: INR 1.3 (0.9-1.1); Prothrombin Time 12.4 sec (9.1-11.1)
[2023-10-01 07:48] LABS: PHOSPHORUS 2.7 mg/dL (2.6-4.7)
[2023-10-01 07:56] LABS: ALT 30 U/L (16-63); AST 31 U/L (15-37); Albumin 3.8 g/dL (3.4-5.0); Alkaline Phosphatase 103 U/L (46-116); Anion Gap 9.4 mmol/L (3-11); BUN 7 mg/dL (7-18); Bilirubin, Total 3.37 mg/dL (0.2-1.0); CO2 27.6 mmol/L (21.0-32.0); CREATININE 0.8 mg/dL (0.70-1.30); Calcium 8.9 mg/dL (8.5-10.1); Chloride 95 mmol/L (98-107); Estimated GFR 98.83 (mL/min/1.73m2); Glucose 89 mg/dL (74-106); Magnesium 1.8 mg/dL (1.8-2.4); Potassium 3.8 mmol/L (3.5-5.1); Sodium 132 mmol/L (136-145); Total Protein 7.7 g/dL (6.4-8.2)
[2023-10-01] MEDS: Acetaminophen 500 MG TAB 1000 MG PO ×3 (08:41→20:32)
[2023-10-01] MEDS: Folic Acid 1 MG TAB PO (08:41)
[2023-10-01] MEDS: Multivitamin TAB 1 TAB PO (08:41)
[2023-10-01] MEDS: Gabapentin 100 MG CAP PO ×3 (08:41→20:33)
[2023-10-01] MEDS: Pantoprazole 40 MG TABCR PO (08:42)
[2023-10-01] MEDS: Thiamine 100 MG TAB PO (08:42)
--- NOTE | 2023-10-01 09:29 | PDOC.CMIN ---
Date of service: 10/01/23 Time of Service: 09:29 Care Management Initial Assmt Initial Assessment Reason for Hospitalization: Cervical radiculopathy Functional Status/Living Situation Patient Presentation: Bravo was sitting up in bed visiting with his family when CM met with him. He was soft spoken and pleasant and agreeable to conversation. Bravo requested assistance with Advanced Directives as well as a Financial Assistance packet, both of which were provided by . Bravo also does not have a PCP. He stated he saw a provider once 2 years ago but has not established with anyone. CM sent a referral to [facility] for help with insurance as well as a PCP. Bravo is undergoing an extensive workup for the cervical radiculopathy. He had a Ct scan today but his MRI has been postponed until tomorrow. Town of Residence: [place] Resides with: Alone Significant Other/Family: Local (4 children; 3 live locally and one is in [place]) Natural Supports: sister Virginia weiner Employment Status: Unemployed Instrumental Activities of Daily Living (ADLs): Independent Medications Medication Management: No Issues/Barriers identified Physical Functioning/Mobility Assistive Device: none Advance Directives Advance Directives: Do you have an Advance Directive: N 11/18/15 10:12 AD On File at [facility]: N 11/18/15 10:12 Date Asked 09/30/23 09/30/23 12:30 AD Date Reviewed COLST On File at [facility] COLST Date Scanned Code Status Resuscitation Status Full Code Portal Pt does not currently have a portal and education provided: No Insurance Coverage/Financial Issues Insurance: none referral sent to [facility] ACO Member: No Financial Issues: Patient has no insurance Given patient Assistance Packet Care Team Visit Care Team Role Provider Type Unknown Unknown Primary Care Provider STAFF PHYSICIAN DAVID Jackson Emergency Provider [facility] [employer] [facility] Salas Chow MD Admit Provider [facility] STAFF PHYSICIAN Attending Provider Discharge Potential Discharge Needs: PCP F/U Appt (will need an appointment with T-doc Prefers to go to [facility]) Anticipated Barriers to Discharge: Other (lack of insurance and PCP) Patient/Family Education Needs: Review discharge instructions, discuss Ask Me Three Transportation: Private vehicle Plan: Bravo's discharge plan is not clear at this time. He is having additional radiology studies to further define some of the earlier findings. He may require transfer to a tertiary center depending on findings and treatment options. CM will follow and support discharge planning needs. PFSH All Active Problems (Updated 09/30/23 @ 21:37 by Faustino Bowman MD) Fibrothorax (Acute) DVT prophylaxis (Acute) Hypokalemia (Acute) Hyponatremia (Acute) Alcoholism (Acute) Elevated bilirubin (Acute) Thoracic radiculopathy (Acute) Cervical radiculopathy (Acute) Pulmonary asbestosis (Acute) Loculated pleural effusion (Acute) Dupuytren's contracture of left hand (Chronic) Excessive drinking of alcohol (Chronic) Chewing tobacco use (Chronic) Reducible left inguinal hernia (Chronic) Surgical History S/P vasectomy (~1997) Family History Mother Hypertension Dementia Father , at 56 of lung cancer Lung cancer Sister Colon cancer Cervical cancer Sister No problems noted. Son No problems noted. Son No problems noted. Son No problems noted. Daughter No problems noted. Maternal Grandfather No problems noted. Maternal Grandmother No problems noted. Paternal Grandfather No problems noted. Paternal Grandmother No problems noted. Social History Smoking/Tobacco Use Status: Current every day Tobacco Type: smokeless tobacco Smokeless tobacco user: snuff Quit status: considering quitting Smoking risk assessment performed?: Yes Alcohol Intake: current Alcohol Intake frequency: 3 or more drinks per day Alcohol type: beer Drug use: Never Substance use type: does not use Caregiver/Support person: No Household members: family Housing: house Communication Needs: None Pets and animals: Yes Pets and animals: dog(s) Sexually active: No Current gender identity: female What is your relationship status?: How often do you talk on the phone with friends or family?: three or more times per week How often do you get together with friends or relatives?: twice per week How often do you attend advent or caodaism services?: decline to answer Do you belong to any clubs or organized social groups?: no Panel score (0-1 are the most socially isolated patients): 1 What type of physical activity do you participate in: decline to answer Duration: decline to answer Frequency: decline to answer /Spiritism: Rastafari Special needs: No Seatbelt use: always Helmet use: Yes Helmet use: sometimes SDOH(Care Management) Screening Will the Patient Participate in the Screening?: Yes Do you worry about having a steady place to live?: no Problems where you live: no known problems In the past 12 months, have you had to go without electric, gas, oil or water in your home?: no Have you or anyone in your house had to go without enough food to eat?: no Has lack of transportation kept you from medical appointments or from doing things needed for daily living?: no Has anyone in your support network made you feel unsafe for any reason?: no
--- NOTE | 2023-10-01 10:43 | W.PM.PROGNOT ---
Date of Service Date of service: 10/01/23 Time of Service: 10:44 Assessment and Plan Assessment and plan (1) Cervical radiculopathy: Status: Acute Assessment and plan: -patient has symptoms of a lower cervical/upper thoracic radiculopathy on the right that begins from the suprascapular area of right shoulder and radiates down the right arm to ring finger and little finger not associated w/ any weakenss of his right hand or arm. -had been evaluated for ACS while in the emergency room by the PA and had normal EKG and two normal troponin I levels. -Patient is physically active renovating homes, still does electrical work and has had no exertional CP or exertional dyspnea; onset of his right shoulder and arm pain began around 9 to 10 pm 09/29/2023 and has been constant and unabated. -Furthermore he has had no symptoms of pneumonia such as sputum production, fevers, rigors and labs show normal WBC and normal procalcitonin. CTA did not show a P.E. or lung consolidation other than total collapse of his LLL caused by loculated effusion. -continue ketorolac and gabapentin and Tylenol -added PRN PO morphine for breakthrough pain -f/u MRI of c spine and T spine in the morning looking for degenerative disc disease but more importantly to rule out a metastatic lesion to the spine. 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 and known exposure to asbestosis, pleural calcifications on his chest CT are likely d/t asbestosis however can not exclude mesothelioma -would need pleural fluid sampling and pleural biopsy; [place] [facility] [place] work[place] (4) Elevated bilirubin: Status: Acute Assessment and plan: -likely d/t alcoholic liver disease however will get CT imaging of abdomen/pelvis to rule out cirrhosis/alcoholic fatty liver vs infiltrative process such as cancer (5) Alcoholism: Status: Acute Assessment and plan: -patient has hx of at least two episodes of acute alcohol withdrawal associated w/ seizures during periods of forced abstinence; last one two years ago, prior episode many years ago when his children were small. -given IV phenobarbital loading dose in ED -CALISTA was 19.3 mg/dL on admission. (6) Hyponatremia: Status: Acute Assessment and plan: -likely beer potomania; limit fluids to <=1000 mL per day, monitor electrolytes; replace K; no need for iv saline or hypertonic saline; patient is not encephalopathy or having seizures. -If encephalopathy and sodium is dropping then there would be need to more urgently correct sodium. (7) Hypokalemia: Status: Acute Assessment and plan: - correct w/ oral supplements and monitor (8) DVT prophylaxis: Status: Acute Assessment and plan: -continue SCDs Subjective Subjective Interval history since last seen: Patient states that he is doing well today, though he is looking forward to the results of his CT and MRI later today. Exam Narrative Exam Narrative: chronically ill appearing older gentleman laying in bed in no acute distress, AOx4, heart RRR, lungs with diminished breath sounds over left lower lobe, otherwise clear to auscultation, abdomen soft, non-tender, non-distended, left hand with Dupuytrens over left 3-5th digits, normal strength and sensation in bilateral upper and lower extremities Objective Last Vital Signs Temp 98.8 F 10/01/23 07:24 Pulse 68 10/01/23 07:24 Resp 17 10/01/23 07:24 BP 141/83 H 10/01/23 07:24 Pulse Ox 97 10/01/23 07:24 Laboratory Results - last 24 hr 09/30/23 09/30/23 09/30/23 12:13 12:31 12:31 WBC 7.90 RBC 4.62 Hgb 15.6 Hct 43.7 MCV 95 MCH 33.8 H MCHC 35.7 RDW 11.9 Plt Count 208 MPV 9.9 Immature Gran % 0.5 Neutrophils % 82.2 Lymphocytes % 7.2 Monocytes % 9.7 Eosinophils % 0.0 Basophils % 0.4 Nucleated RBC % 0.0 Absolute Neutrophils 6.49 Absolute Lymphocytes 0.57 L Absolute Monocytes 0.77 Absolute Eosinophils 0.00 Absolute Basophils 0.03 ESR 29 H PT INR D-Dimer 1469 H VBG Lactate Sodium 129 L Potassium 3.4 L Chloride 92 L Carbon Dioxide 24.2 Anion Gap 12.8 H BUN 5 L Creatinine 0.6 L Est GFR (CKD-EPI 2020) 107.80 Glucose 115 H Calcium 9.4 Phosphorus Magnesium Total Bilirubin 2.71 H AST 47 H ALT 42 Alkaline Phosphatase 119 H Troponin I Cancelled < 50 C-Reactive Protein < 0.50 Total Protein 8.9 H Albumin 4.4 Triglycerides Total Cholesterol LDL Cholesterol, Calc HDL Cholesterol Lipase 24 Procalcitonin Urine Color Urine Clarity Urine pH Ur Specific [place] Urine Protein Urine Ketones Urine Blood Urine Nitrite Urine Bilirubin Urine Urobilinogen Ur Leukocyte Esterase Urine RBC Urine WBC Ur Epithelial Cells Urine Crystals Urine Bacteria Urine Mucus Ur Culture Indicated? Urine Glucose Urine Opiates Screen Urine Methadone Screen Ur Barbiturates Screen Ur Tricyclics Screen Ur Amphetamines Screen U Benzodiazepines Scrn Urine Cocaine Screen Ur THC Screen Ethyl Alcohol 19.3 H Add-On Test Request DONE 09/30/23 09/30/23 09/30/23 15:47 16:35 18:27 WBC RBC Hgb Hct MCV MCH MCHC RDW Plt Count MPV Immature Gran % Neutrophils % Lymphocytes % Monocytes % Eosinophils % Basophils % Nucleated RBC % Absolute Neutrophils Absolute Lymphocytes Absolute Monocytes Absolute Eosinophils Absolute Basophils ESR PT INR D-Dimer VBG Lactate 1.0 Sodium Potassium Chloride Carbon Dioxide Anion Gap BUN Creatinine Est GFR (CKD-EPI 2020) Glucose Calcium Phosphorus Magnesium 1.8 Total Bilirubin AST ALT Alkaline Phosphatase Troponin I < 50 C-Reactive Protein Total Protein Albumin Triglycerides 29 Total Cholesterol 127 LDL Cholesterol, Calc 47 HDL Cholesterol 75 Lipase Procalcitonin < 0.1 Urine Color Yellow Urine Clarity Clear Urine pH 7.0 Ur Specific [place] 1.015 Urine Protein Negative Urine Ketones 15 H Urine Blood Trace-intact H Urine Nitrite Negative Urine Bilirubin Negative Urine Urobilinogen 2.0 H Ur Leukocyte Esterase Negative Urine RBC 0-2 Urine WBC 0-2 Ur Epithelial Cells Negative Urine Crystals Negative Urine Bacteria Negative Urine Mucus Negative Ur Culture Indicated? No Urine Glucose Negative Urine Opiates Screen Negative Urine Methadone Screen Negative Ur Barbiturates Screen Positive A Ur Tricyclics Screen Negative Ur Amphetamines Screen Negative U Benzodiazepines Scrn Negative Urine Cocaine Screen Negative Ur THC Screen Negative Ethyl Alcohol Add-On Test Request 10/01/23 06:20 WBC 7.04 RBC 4.26 L Hgb 14.3 Hct 41.5 MCV 97 H MCH 33.6 H MCHC 34.5 RDW 12.0 Plt Count 174 MPV 10.2 Immature Gran % 0.4 Neutrophils % 68.1 Lymphocytes % 14.1 Monocytes % 16.5 Eosinophils % 0.3 Basophils % 0.6 Nucleated RBC % 0.0 Absolute Neutrophils 4.80 Absolute Lymphocytes 0.99 L Absolute Monocytes 1.16 H Absolute Eosinophils 0.02 Absolute Basophils 0.04 ESR PT 12.4 H INR 1.3 H D-Dimer VBG Lactate Sodium 132 L Potassium 3.8 Chloride 95 L Carbon Dioxide 27.6 Anion Gap 9.4 BUN 7 Creatinine 0.8 Est GFR (CKD-EPI 2020) 98.83 Glucose 89 Calcium 8.9 Phosphorus 2.7 Magnesium 1.8 Total Bilirubin 3.37 H AST 31 ALT 30 Alkaline Phosphatase 103 Troponin I C-Reactive Protein Total Protein 7.7 Albumin 3.8 Triglycerides Total Cholesterol LDL Cholesterol, Calc HDL Cholesterol Lipase Procalcitonin Urine Color Urine Clarity Urine pH Ur Specific [place] Urine Protein Urine Ketones Urine Blood Urine Nitrite Urine Bilirubin Urine Urobilinogen Ur Leukocyte Esterase Urine RBC Urine WBC Ur Epithelial Cells Urine Crystals Urine Bacteria Urine Mucus Ur Culture Indicated? Urine Glucose Urine Opiates Screen Urine Methadone Screen Ur Barbiturates Screen Ur Tricyclics Screen Ur Amphetamines Screen U Benzodiazepines Scrn Urine Cocaine Screen Ur THC Screen Ethyl Alcohol Add-On Test Request PAWSS Have you Been Recently Intoxicated or Drunk Within the Last 30 days?: Yes Have you Ever Experienced Previous Episodes of Alcohol Withdrawal?: Yes Have you ever Experienced Withdrawal Seizures?: No Have you ever Experienced Delirium Tremens(DT)s?: No Have you ever undergone Alcohol Rehabilitation Treatment (i.e, inpt ot outpatient treatment programs)?: No Have you ever Experienced Blackouts?: No Have you ever Combined Alcohol with other Downers within the last 90 days?: No Have you ever Combined Alcohol with any other Substance of Abuse during the last 90 days?: No Positive Blood Alcohol level on Presentation? [PCS.BAL]: No Evidence of Increased Autonomic Activity (i.e. HR>120, tremor, sweating, agitation, nausea)?: No Result: 2 Time Spent with Patient Time Spent with Patient: >50 minutes Time was spent: preparing to see the patient(eg.review tests), obtaining and/or reviewing separately otained hiistory, ordering medications,tests, procedures, referring, communicating with other health career development facilitator, indepentently interpreting results, counseling the patient and care coordination
[2023-10-01 12:09] VITALS: BP 136/83; PULSE 82; RESP 17; TEMP 37; O2SAT 99
--- NOTE | 2023-10-01 13:03 | PHA.REVIEW2 ---
Pharmacy Admission Review Admission Clinical Review Admission Pharmacy Review: Fibrothorax (Acute) DVT prophylaxis (Acute) Hypokalemia (Acute) Hyponatremia (Acute) Alcoholism (Acute) Elevated bilirubin (Acute) Thoracic radiculopathy (Acute) Cervical radiculopathy (Acute) Pulmonary asbestosis (Acute) Loculated pleural effusion (Acute) No Known Allergies Allergy (Unverified 09/30/23 12:26) Resuscitation Status Full Code Height 5 ft 9 in Weight 56.6 kg Pharmacy Admission Review Renal Dosing Renal Dosing: BUN 7 mg/dL (7-18) 10/01/23 06:20 Creatinine 0.8 mg/dL (0.70-1.30) 10/01/23 06:20 Medications needing adjustments: Reviewed (CrCl 59.7 mL/min) List of meds needing interventions: Current medications are okay Anticoagulation Anticoagulation: Hgb 14.3 g/dL (13.5-17.5) 10/01/23 06:20 Hct 41.5 % (40.0-50.0) 10/01/23 06:20 Plt Count 174 10^3/uL (130-400) 10/01/23 06:20 INR 1.3 (0.9-1.1) H 10/01/23 06:20 Creatinine 0.8 mg/dL (0.70-1.30) 10/01/23 06:20 DVT Prophylaxis: Reviewed (SCDs - low risk per progress note) Opiate Usage Evaluate Pain Scale/Pains Meds: Reviewed (PRN morphine PO - no doses given so far) Scheduled Bowel Reg ordered if on Opiates?: No (PRN docusate and Miralax) Relevant Labs Relevant Labs: ESR 29 mm/hr (0-20) H 09/30/23 12:31 Sodium 132 mmol/L (136-145) L 10/01/23 06:20 Potassium 3.8 mmol/L (3.5-5.1) 10/01/23 06:20 Chloride 95 mmol/L (98-107) L 10/01/23 06:20 Phosphorus 2.7 mg/dL (2.6-4.7) 10/01/23 06:20 Magnesium 1.8 mg/dL (1.8-2.4) 10/01/23 06:20 C-Reactive Protein < 0.50 mg/dL (<or=0.5) 09/30/23 12:13 Electrolytes, C-Reactive P, ESR: Reviewed (Na 132 (increased from 129), INR 1.3, AST/ALT decreased from 47/42 to ) Cardiac Review Cardiac Review: Troponin I < 50 ng/L (< or =60) 09/30/23 15:47 Blood Pressure 136/83 1209 Blood Pressure 141/83 0724 Blood Pressure 160/91 0318 BP, HR, EF%: Reviewed (BP and HR WNL) QTc Review QTc: Reviewed (447 from 09/30/23) IV to PO Switch IV Medications: Reviewed (phenobarbital) Home Meds Home Med List reviewed: Reviewed Relevent Home Meds Not ordered & why?: No known home meds Current Meds Current Medication Order Review: Intervened Comments: Added patch removal order for lidocaine patch Phenobarbital for withdrawal 6mg/kg for loading dose = 420mg. The entire 420mg were given as one loading dose (instead of into 3 loading). Notified provider. Soft stop: 1060.5mg Hard stop: 1414mg Current amount given: 420mg Pharmacy Antibiotic Review Relevant Labs: Relevant Labs 09/30/23 09/30/23 16:35 12:13 C-Reactive Protein < 0.50 Procalcitonin < 0.1
[2023-10-01] MEDS: diazePAM 5 MG TAB PO (14:32)
[2023-10-01 15:39] VITALS: BP 132/78; PULSE 75; RESP 18; TEMP 36.8; O2SAT 100
[2023-10-01 19:35] VITALS: BP 107/74; PULSE 89; RESP 17; TEMP 37; O2SAT 98
[2023-10-01] MEDS: Melatonin 3 MG TAB 9 MG PO (20:33)
[2023-10-01 20:53] LABS: Lab Add On Test DONE
[2023-10-01 20:55] LABS: Bilirubin, Direct 0.7 mg/dL (0.0-0.2)
[2023-10-01 22:50] VITALS: BP 114/65; PULSE 82; RESP 14; TEMP 36.6; O2SAT 98
--- NOTE | 2023-10-02 | DI.MRI_ITS ---
Exam(s) MR THORACIC SPINE WO/W EXAM: MR THORACIC SPINE WO/W CLINICAL HISTORY: right neck/back, R shoulder/arm radiculopathy TECHNIQUE: Multiplanar multisequence MRI of the thoracic spine was performed without intravenous con trast. COMPARISON: CT CT CHEST PE CTA from 09/30/[address] ABDOMEN PELVIS WO from 10/01/2023 FINDINGS: OSSEOUS: There are nonacute appearing Schmorl's node invagination XXXX in the superior endplates of T 7 and T8 vertebral bodies, not associated with surrounding bone edema. There is also a nonacute appe aring compression fracture of the superior endplate of L1. There is a small focus of signal abnormali ty in the T9 vertebral body which is hypointense on T1, hyperintense on T2, and does exhibit some enh ancement following contrast injection. This may therefore be a small significant bone lesion. This measures approximately 6 x 6 x 6 mm. And is nonexpansile. THORACIC SPINAL CORD: There is no abnormal signal in the cervical spinal cord and no evidence of foca l cord atrophy nor focal cord swelling. There is no evidence of syringomyelia nor significant spinal cord dysraphism. There is no evidence of mass at the conus medullaris. The position of the conus me dullaris is at T12-L1 level. SIGNIFICANT INDIVIDUAL LEVEL FINDINGS: There is a small subligamentous disc protrusion at T7-T8 level which minimally indents the thecal sac but not the spinal cord and there is no central canal stenosis at this level. Also no foraminal mary nosis at this level nor other levels in the thoracic spinal column. PARASPINAL TISSUES: Recently described large mass in the left lung left lower lobe noted. See separa te recent CT scan reports. IMPRESSION: 1. No acute fractures of the thoracic vertebra. Nonacute appearing L1 mild wedge fracture with no si gnificant central canal compromise at this level. There are also non acute appearing Schmorl's node invaginations in superior endplates of T7 and T8. 2. No abnormal intrinsic findings in the thoracic spinal cord. 3. There is a small 6 x 6 x 6 mm intraosseous focus of signal abnormality in posterior aspect of the T9 vertebral body which exhibits long T1 and T2 properties as well as enhancement following contrast injection. Cannot exclude the possibly that this may represent an early metastatic lesion. Review o f the bone windows of recent CT scan of 09/30/2023 does not reveal no obvious lytic lesion at this le ivanna. Large abnormality in the region of the left lung lower lobe which is described on yesterday's CT scan . DATA REPOSITORY:
--- NOTE | 2023-10-02 | DI.MRI_ITS ---
Exam(s) MR CERVICAL SPINE WO/W EXAM: MR CERVICAL SPINE WO/W CLINICAL HISTORY: right shoulder/arm radiculopathy TECHNIQUE: Multiplanar multisequence MRI of the cervical spine was performed with both pre and post contrast infused sequences. CONTRAST = DOTAREM 11 ML COMPARISON: There are no plain films of the cervical spine available time of this MRI interpretation FINDINGS: CERVICOMEDULLARY JUNCTION: Intact with no evidence of cerebellar tonsillar ectopia. No obvious abnor mality of the odontoid process. No evidence of Chiari 1 malformation. OSSEOUS:There are no cervical fractures evident. No significant osseous lesions in the cervical verte brae. Mildly exaggerated curvature of the cervical spine noted. CERVICAL SPINAL CORD: There is no abnormal signal in the cervical spinal cord and no evidence of foca l cord atrophy nor focal cord swelling. There is no abnormal intramedullary enhancement within the s sunil cord and no evidence of abnormal epidural enhancement. INDIVIDUAL LEVELS: C2-3: Normal disc height. No disc herniation nor central canal stenosis. Right facet joints unremar kable and no foraminal stenosis on the right side. Moderate-advanced degenerative change in the left facet joint. Moderate left-sided foraminal stenosis. C3-4: Moderate-advanced disc space narrowing. No listhesis. Posteriorly there is annular bulging, s lightly more so on the right side. No prominent disc herniation. Central canal dimensions are lower normal. Mild degenerative changes in the left facet joint. Moderate foraminal stenosis on the left side.On the right side there are moderate-advanced facet arthropathy changes. Moderate-severe mira inal stenosis on the right side noted. C4-5: This level exhibits mild-moderate disc space narrowing. Mild symmetrical annular bulging witho ut a dominant disc herniation but there is mild central spinal canal stenosis. AP measurement of the canal at this level is 8-9 mm. Mild degenerative changes in the right facet joint at this level.Sev ere right-sided foraminal stenosis. Mild degenerative changes in the left facet joint at this level with mild left-sided foraminal stenosis.. C5-6: This level exhibits advanced disc space narrowing and asymmetric left-sided disc-Luschka joint osteophyte on the left side. There is mild central spinal canal stenosis with AP dimension of the ca nal being 9 mm. In there is effacement of the anterior left side of the thecal sac. There moderate degenerative changes in both facet joints at this level. On the left side there is severe foraminal stenosis. On the right side there is moderate-severe spinal stenosis. C6-7: This level exhibits relatively preserved disc height. No disc herniation. No central spinal c anal stenosis. There are moderate degenerative changes in the right facet joint at this level. No f oraminal stenosis on the right side. On the left side the facet joints exhibit minimal degenerative change.. Only mild foraminal stenosis on the left side. C7-T1: No disc herniation nor central canal stenosis. Mild facet arthropathy.No prominent foraminal s tenosis. IMPRESSION: 1. Multi level findings as described individually above. 2. There is an element of the central spinal canal stenosis at C4-5 and C5-6 levels and there is mult ilevel asymmetric foraminal stenosis at multiple levels as described above. 3. At C5-6 level there is asymmetric left-sided disc-Luschka joint osteophyte complex which impresses the anterior left side of the thecal sac and results in severe left-sided foraminal stenosis. There is more moderate foraminal stenosis on the opposite-right side at this level. 4. There is severe right-sided foraminal stenosis at C4-5 level. 5. There is no abnormal signal abnormality nor enhancement within the cervical spinal cord. No abno rmal epidural enhancement. DATA REPOSITORY:
[2023-10-02] MEDS: traMADol 50 MG TAB 100 MG PO (04:03)
[2023-10-02] MEDS: Docusate Sodium 100 MG CAP PO (04:03)
[2023-10-02 04:11] VITALS: BP 133/89; PULSE 74; RESP 16; TEMP 36.4; O2SAT 99
[2023-10-02] MEDS: Patch Removal LIDOCAINE 1 EACH TP (05:00)
[2023-10-02 06:54] LABS: HCT 39.3 % (40.0-50.0); HGB 13.7 g/dL (13.5-17.5); MCH 33.8 pg (27.0-33.0); MCHC 34.9 % (32.0-36.0); MCV 97 fL (80-95); MPV 10.3 fL (8.0-11.0); Platelet Count 155 10^3/uL (130-400); RBC 4.05 10^6/uL (4.36-5.78); RDW 12.1 % (11.8-14.1); RDW-SD 43.9 fL
[2023-10-02 07:10] LABS: Anion Gap 7.5 mmol/L (3-11); BUN 17 mg/dL (7-18); CO2 27.5 mmol/L (21.0-32.0); Calcium 9.6 mg/dL (8.5-10.1); Chloride 100 mmol/L (98-107); Estimated GFR 84.05 (mL/min/1.73m2); Glucose 92 mg/dL (74-106); Potassium 3.6 mmol/L (3.5-5.1); Sodium 135 mmol/L (136-145)
[2023-10-02 07:50] VITALS: BP 140/81; PULSE 70; RESP 17; TEMP 36.6; O2SAT 99
[2023-10-02] MEDS: Thiamine 100 MG TAB PO (08:30)
[2023-10-02] MEDS: Acetaminophen 500 MG TAB 1000 MG PO ×2 (08:30→13:06)
[2023-10-02] MEDS: Multivitamin TAB 1 TAB PO (08:31)
[2023-10-02] MEDS: Gabapentin 100 MG CAP PO ×2 (08:31→13:06)
[2023-10-02] MEDS: Pantoprazole 40 MG TABCR PO (08:31)
[2023-10-02] MEDS: Folic Acid 1 MG TAB PO (08:31)
[2023-10-02] MEDS: Normal Saline Flush 10 ML SYR IVP (08:36)
--- NOTE | 2023-10-02 09:42 | PDOC.CMDIS ---
Date of service: 10/02/23 Time of Service: 09:42 LACE Index Scoring Tool Questions: Length of Stay (in days): 2 Was the patient admitted via the E.D.?: Yes E.D. Visits: 0 Answers: Total Score: 5 Risk of Readmission: Low Risk Care Management Discharge Plan Reason for Hospitalization: cervical radiculopathy, left pleural effusion Discharge Plan: Bravo will return home today with no new services. He will be driven home via private vehicle by family. He is working with [employer] to obtain insurance; his son is also supporting him with this. He will follow up with the regional sales representative provider (Dr. Hagen, [facility]) on October 09 at 1:40pm, and his discharge plan of care. Patient/Family Education Needs: Review discharge instructions and limitations, discussion of self care needs including ask me three. SDOH Health Related Social Needs: No Data to Display
[2023-10-02] MEDS: diazePAM 5 MG TAB PO (10:01)
[2023-10-02] MEDS: Gadoterate meglumine 20 ML SYRINGE 11 ML IVP (13:36)
[2023-10-02] MEDS: Nicotine 21 MG/24 HR PATCH TD (14:24)
[2023-10-02 14:40] VITALS: BP 135/79; PULSE 72; RESP 17; TEMP 36.5; O2SAT 99
--- NOTE | 2023-10-02 15:15 | AC.ASSESS ---
Asthma Clinic Visit
--- NOTE | 2023-10-02 15:15 | CHAPLAIN ---
Bravo was out of the room when I visited. Several family members were waiting for him. I explained my role and offered support.
--- NOTE | 2023-10-02 17:15 | DSE_ITS ---
Date of service: 10/02/23 Time of Service: 18:15 DS: Diagnosis Discharge Diagnosis (1) Cervical radiculopathy: Status: Acute Asessment and Plan: Patient initially presented with right shoulder and arm pain that began the night prior to arrival. Ultimately, patient had multiple imaging studies including chest CT, CT abdomen pelvis, cervical and thoracic spine MRI. CT chest showed capsulated fluid collection in the left hemithorax posteriorly measuring 12 x 6.7 x 19 cm calcified pleural plaques can be seen with expressed this exposure. Initially there was concern of pneumonia versus empyema, however patient did not have any fever, chills, leukocytosis or recent cough, increasing the concern for potential malignancy. Additionally, thoracic spine imaging showed small 6 x 6 x 6 mm intraosseous focus of signal abnormality posterior aspect of T9 vertebral body which exhibits long T1 and T2 properties as well as enhancement following contrast injection but cannot exclude the possibility that may represent early metastatic lesion. Cervical spine MRI showed some central spinal canal stenosis at C4-C5 C5-C6, some asymmetric left-sided disc Luschka joint osteophyte and resultant severe left-sided foramen stenosis as well as severe right-sided foraminal stenosis at C4-C5. Given the patient was not hypoxic, was hemodynamically stable and other than his right arm pain was symptom free, it was determined that the patient was stable for discharge. However, patient will have referral to [facility] oncology for consideration of urgent workup for highly suspicious lung mass and potential thoracic spine early metastasis. (2) Thoracic radiculopathy: Status: Acute Asessment and Plan: -as noted above (3) Pulmonary asbestosis: Status: Acute Asessment and Plan: -as noted above (4) Elevated bilirubin: Status: Acute (5) Alcoholism: Status: Acute Asessment and Plan: -patient recieved leading dose of IV phnoebarb on admission and did not experience any signs or symptoms of alcohol withdrawal during hospitalization (6) Hyponatremia: Status: Resolved Asessment and Plan: -likely due to alcohol/beer intake, resolved during hospitalization (7) Hypokalemia: Status: Resolved Discharge Plan Disposition Patient Disposition: Home Condition: Good Discharge Details Reason For Visit: Cervical Radiculopathy, Left Pleural Effusion Admit Date/Time: 09/30/23 16:57 Admit Provider: Salas Chow Attending Provider: Salas Chow Primary Care Provider: Unknown,Unknown Hospital Course Hospital Course: Patient initially presented with right shoulder and arm pain that began the night prior to arrival. Ultimately, patient had multiple imaging studies including chest CT, CT abdomen pelvis, cervical and thoracic spine MRI. CT chest showed capsulated fluid collection in the left hemithorax posteriorly measuring 12 x 6.7 x 19 cm calcified pleural plaques can be seen with expressed this exposure. Initially there was concern of pneumonia versus empyema, however patient did not have any fever, chills, leukocytosis or recent cough, increasing the concern for potential malignancy. Additionally, thoracic spine imaging showed small 6 x 6 x 6 mm intraosseous focus of signal abnormality posterior aspect of T9 vertebral body which exhibits long T1 and T2 properties as well as enhancement following contrast injection but cannot exclude the possibility that may represent early metastatic lesion. Cervical spine MRI showed some central spinal canal stenosis at C4-C5 C5-C6, some asymmetric left-sided disc Luschka joint osteophyte and resultant severe left-sided foramen stenosis as well as severe right-sided foraminal stenosis at C4-C5. Given the patient was not hypoxic, was hemodynamically stable and other than his right arm pain was symptom free, it was determined that the patient was stable for discharge. However, patient will have referral to [facility] oncology for consideration of urgent workup for highly suspicious lung mass and potential thoracic spine early metastasis. Home Meds and New Rx's Prescriptions: New pantoprazole 40 mg Tablet,Delayed Release (Dr/Ec) 40 mg PO DAILY@0730 Qty: 90 0RF folic acid 1 mg Tablet 1 mg PO QAM Qty: 90 0RF gabapentin 100 mg Capsule 100 mg PO TID Qty: 90 0RF morphine 15 mg Tablet 15 mg PO Q4H PRN PRNQty: 10 0RF nicotine [Nicoderm CQ] 21 mg/24 hr patch 24 hour 1 patch transdermal DAILY Qty: 28 0RF Discharge Instructions Stand Alone Forms: Nursing Discharge Form Referrals: HEMATOLOGY/ONC,[facility] [OTHER] - (Left lower lobe mass and possible ever lesions on spine----Will fax referral ) Annelise Bull NP [NURSE PRACTITIONER] - 10/10/23 1:40 pm (With Dr. Hagen ) Activity:: Activity as Tolerated Equipment/Supplies:: No Equipment Needed Diet:: As Tolerated Discharge Orders Discharge Orders: Discharge Order (Routine); Ordered 10/02/23 Ordered By: Reece Levin Discharge Data Discharge Date/Time-TO BE ENTERED AT DEPARTURE: 10/02/23 18:51 DS: Summary Time Spent with Patient providing and/or coordinating discharge services: Greater than 30 minutes Status at Discharge Functional status at discharge: independent ambulation Overall status at discharge: patient is back to baseline Mental Status: mental status grossly normal Speech and Movement: speech and movement normal Mood: congruent mood Affect: normal affect Quality:SDOH Health Related Social Needs: No Data to Display Exam Narrative Exam Narrative: chronically ill appearing older gentleman laying in bed in no acute distress, AOx4, heart RRR, lungs with diminished breath sounds over left lower lobe, otherwise clear to auscultation, abdomen soft, non-tender, non-distended, left hand with Dupuytrens over left 3-5th digits, normal strength and sensation in bilateral upper and lower extremities Psych Mental Status: mental status grossly normal Speech and Movement: speech and movement normal Mood: congruent mood Affect: normal affect DS: Data Vitals/I&O Vitals and I&O: Vital Signs Temperature 97.7 F 10/02/23 14:40 Temperature Source Skin 10/02/23 14:40 Pulse 72 10/02/23 14:40 Pulse Rhythm Regular 10/02/23 08:30 Pulse 93 H 09/30/23 17:40 Respiratory Rate 17 10/02/23 14:40 Respiratory Effort Normal, Non-Labored 10/02/23 08:30 Respiratory Depth Normal 10/02/23 08:30 Respiratory Pattern Normal 10/02/23 08:30 Blood Pressure 135/79 10/02/23 14:40 Blood Pressure Mean 105 09/30/23 17:35 Pulse Oximetry 99 10/02/23 14:40 Oxygen Delivery Method Room Air 10/02/23 14:40 Oxygen Flow Rate 0 10/02/23 14:40 Pain Level 0 10/02/23 14:40 Intake & Output 10/01/23 10/02/23 10/02/23 17:59 05:59 17:59 Intake Total 610 / 610 200 / 810 Output Total 175 / 175 150 / 150 Balance 610 / 610 25 / 635 -150 / -150 Weight 124 lb 12.506 oz 128 lb 8.472 oz Intake: IV 10 / 10 Oral 600 / 600 200 / 800 Output: Urine 175 / 175 150 / 150 Other: Urine Color Light Jennifer Light Jennifer Urine Appearance Clear Clear Clear Comment Family in the room and stated that he had used the bathroom twice. Independent. Voiding Methods Toilet Toilet Toilet Data Completed and Pending Labs on day of discharge: Labs from last 24 hours 10/02/23 10/01/23 06:10 06:20 WBC 6.30 RBC 4.05 L Hgb 13.7 Hct 39.3 L MCV 97 H MCH 33.8 H MCHC 34.9 RDW 12.1 Plt Count 155 MPV 10.3 Sodium 135 L Potassium 3.6 Chloride 100 Carbon Dioxide 27.5 Anion Gap 7.5 BUN 17 Creatinine 1.0 Est GFR (CKD-EPI 2020) 84.05 Glucose 92 Calcium 9.6 Conjugated Bilirubin 0.7 H Add-On Test Request DONE Preliminary micro results at discharge 09/30/23 17:16 Blood Culture - Preliminary Blood NO GROWTH 24 HOURS 09/30/23 16:35 Blood Culture - Preliminary Blood NO GROWTH 24 HOURS PFSH All Active Problems (Updated 10/03/23 @ 00:05 by SAMANTA MARRERO) Fibrothorax (Acute) Alcoholism (Acute) Elevated bilirubin (Acute) Thoracic radiculopathy (Acute) Cervical radiculopathy (Acute) Pulmonary asbestosis (Acute) Loculated pleural effusion (Acute) Dupuytren's contracture of left hand (Chronic) Excessive drinking of alcohol (Chronic) Chewing tobacco use (Chronic) Reducible left inguinal hernia (Chronic) Surgical History S/P vasectomy (~1997) Family History Mother Hypertension Dementia Father , at 56 of lung cancer Lung cancer Sister Colon cancer Cervical cancer Sister No problems noted. Son No problems noted. Son No problems noted. Son No problems noted. Daughter No problems noted. Maternal Grandfather No problems noted. Maternal Grandmother No problems noted. Paternal Grandfather No problems noted. Paternal Grandmother No problems noted. Social History Smoking/Tobacco Use Status: Current every day Tobacco Type: smokeless tobacco Smokeless tobacco user: snuff Quit status: considering quitting Smoking risk assessment performed?: Yes Alcohol Intake: current Alcohol Intake frequency: 3 or more drinks per day Alcohol type: beer Drug use: Never Substance use type: does not use Caregiver/Support person: No Household members: family Housing: house Communication Needs: None Pets and animals: Yes Pets and animals: dog(s) Sexually active: No Current gender identity: female What is your relationship status?: How often do you talk on the phone with friends or family?: three or more times per week How often do you get together with friends or relatives?: twice per week How often do you attend cheondoism or episcopal services?: decline to answer Do you belong to any clubs or organized social groups?: no Panel score (0-1 are the most socially isolated patients): 1 What type of physical activity do you participate in: decline to answer Duration: decline to answer Frequency: decline to answer /Druze: Confucianism Special needs: No Seatbelt use: always Helmet use: Yes Helmet use: sometimes Time Spent with Patient Time Spent with Patient: <45 minutes Time was spent: preparing to see the patient(eg.review tests), obtaining and/or reviewing separately otained hiistory, ordering medications,tests, procedures, referring, communicating with other health home health care physician, indepentently interpreting results, counseling the patient and care coordination
== END 2023-10-02 18:51 | disposition home or self-care (01) ==
LOC: ER 15:59 → MS 17:55
PROVIDERS: Emergency Medicine; Family Medicine; Nurse Practitioner Family; Admitting Provider Internal Medicine; Emergency Provider Physician Assistant; Visit Provider Internal Medicine
DX: M48.02 Spinal stenosis, cervical region (principal); M54.14 Radiculopathy, thoracic region; J90 Pleural effusion, not elsewhere classified; J61 Pneumoconiosis due to asbestos and other mineral fibers; R91.8 Other nonspecific abnormal finding of lung field; M54.12 Radiculopathy, cervical region; M25.511 Pain in right shoulder; F10.20 Alcohol dependence, uncomplicated; R17 Unspecified jaundice; E87.1 Hypo-osmolality and hyponatremia; M51.44 Schmorl's nodes, thoracic region; E87.6 Hypokalemia; J94.1 Fibrothorax; R42 Dizziness and giddiness; K40.90 Unilateral inguinal hernia, without obstruction or gangrene, not specified as recurrent; F17.220 Nicotine dependence, chewing tobacco, uncomplicated
CPT/HCPCS: 00123; 36415; 71275; 80048; 80053; 80061; 80307; 83690; 84145; 85027; 85652; 87040; 93005; 96365; 96366; 96368; 96375; 96376; 99291; 71045; 72156; 72157; 74176; 80320; 81003; 81015; 82248; 83605; 83735; 84100; 84484; 85025; 85379; 85610; 86140; 93010; 94667; 99222; 99233; 99238; G0378; J0456; J0696; J1885; J2560; J3490

== ENCOUNTER 2024-06-02 10:42 | Day surgery (SDC) | payer BC, SELFPAY ==
--- NOTE | 2024-06-01 06:50 | W.PM.DSUDISC ---
Date of service: 06/02/24 Discharge Plan Disposition Patient Disposition: Home Condition: Good Discharge Details Reason For Visit: screening colonoscopy Attending Provider: Eric Williamson Primary Care Provider: Mago Pop Home Meds and New Rx's Prescriptions: Continued naloxone [Narcan] 4 mg/actuation spray,non-aerosol 1 spray intranasal Q2-3M PRN (Reason: opioid overdose) Qty: 2 4RF Rx Instructions: spray 1 dose into ONE nostril; alternate nostrils w each dose until help arrives acetaminophen [Acetaminophen Extra Strength] 500 mg tablet 1,000 mg PO ONCE PRN ibuprofen 200 mg tablet 600 mg PO Q6H PRN morphine 15 mg tablet 15 mg PO TID MDD 45 mg PRN (Reason: pain) Qty: 84 0RF pantoprazole 40 mg tablet,delayed release (DR/EC) 40 mg PO DAILY@0730 Qty: 90 0RF gabapentin 100 mg capsule 100 mg PO TID Qty: 270 3RF folic acid 1 mg tablet 1 mg PO QAM Qty: 90 0RF Discharge Instructions Instructions: Colon polyps, Diverticulosis Additional Instructions: Bravo, it was nice meeting you today, and I hope you feel well after the procedure. Things went smoothly. I did find and removed 3 polyps today. These will all be sent off for testing as polyps, different varieties, we use the information from the analysis to help determine timing for future colonoscopies. Those results usually take about a week or 2 to get back, but once I have them, we will be in touch. Incidentally, you have a left-sided inguinal, or groin hernia as well. If you are ever interested in surgical repair of this, which is probably reasonable given its size, I be more than happy to talk to about that as well. Just let my office know. If you need anything else, or have any other questions, please do not hesitate to ask. 1. If tolerated, consume a soft, low fiber diet for 1-2 days. [address] not drive, drink alcohol, operate machinery, make critical decisions, or do activities that require coordination or balance for 24 hours. 3. Because air was put into your colon during the procedure, expelling air from your rectum (passing gas or farting) is normal. 4. You may not have a bowel movement for 1-3 days because of the colonoscopy prep. This is normal. 5. Go directly to the emergency room if you notice any of the following: Develop chills (warm to touch), or if you have a thermometer and your temperature is above 101 Difficulty breathing or difficultly swallowing Persistent vomiting Severe abdominal pain, other than gas cramps Severe chest pain Black, tarry stools Any bleeding ? exceeding one tablespoon 6. Call your physician if the site where your intravenous was started becomes red, swollen, painful, and warm to touch. 7. Your physician has reviewed your pre-procedure medications. Please continue to take those medications as previously ordered. You will be given specific information/education regarding any changes to your medications before leaving. Activity:: Activity as Tolerated Diet:: As Tolerated Discharge Orders Discharge Orders: Discharge Order (Routine); Ordered 06/01/24 Ordered By: Eric Williamson DS: Diagnosis Discharge Diagnosis (1) Encounter for screening colonoscopy: Status: Acute Asessment and Plan: Follow-up on polypectomy results
--- NOTE | 2024-06-01 06:51 | W.COLOREPORT ---
Date of service: 06/02/24 Time of Service: 14:25 Colonoscopy Report Date of procedure: 06/02/24 Pre-op diagnosis general: screening colonoscopy Post-op diagnosis procedure note: other (Colon polyps, diverticulosis) Procedure: colonoscopy with polypectomy Surgeon: Eric Williamson Anesthesia Type: General:No Airway Estimated blood loss (mL): 10 Pathology: other (0.5 cm pedunculated cecal polyp, polyp at 30 cm, 0.25 cm flat polyp at 20 cm) Complications: None Disposition: same day Indications: Bravo is a 63 year old man with a family history of colon cancer who needs his next screening colonoscopy Prep: Miralax/Dulcolax Procedure Start Time: 13:17 Procedure End Time: 14:01 Retraction Time: 18 Findings: Sigmoid diverticulosis, 0.5 cm pedunculated cecal polyp, colonic polyposis at 30 cm, 0.25 cm flat polyp at 20 cm Procedure Description: After the induction of anesthesia, and with the patient in left lateral decubitus position, I began by performing an external anorectal exam.? Perineum and skin were normal, as was the anal verge.? There was no evidence of external hemorrhoids.? Next, I performed a digital rectal exam.? I did not appreciate any abnormal findings.? Next, I advanced a colonoscope into the rectal vault.? I performed retroflexion.? This appeared normal.? Using insufflation, I then advanced the colonoscope beyond the rectal folds and into the sigmoid colon before advancing towards the cecum.? There was difficulty traversing the sigmoid segment. This portion of the colon appeared to be involved in a left-sided inguinal hernia, as the light from the scope was seen in the left inguinal region. The camera was withdrawn, and the inguinal hernia was manually reduced. Gentle pressure was held over the inguinal ring, as the sigmoid colon and descending colon were cannulated. The camera was advanced over to the cecum the scope was noted to be in the cecum by identification of the ileocecal valve and appendiceal orifice.? I then began withdrawing the colonoscope using repeated irrigation as necessary for full evaluation of the colonic mucosa. Within the ascending colon was a 0.5 cm pedunculated polyp. This was removed with a energize snare polypectomy. The specimen was retrieved. There was minimal bleeding from the polypectomy site. Around 30 cm from the anal verge was a small area of polyposis. It appeared to be about 0.75 cm in its largest dimension. The tissue was quite flat. This was removed in piecemeal with cold snare polypectomy, and some of the surrounding mucosa was cauterized. The resection was complete. There was some sigmoid diverticulosis. another polyp was found at 20 cm from the anal verge. This was flat and removed with cold forceps without any issues. Once the scope was withdrawn to the level of the rectum, great care was taken to examine portions of the rectal folds.? Finally, the scope was withdrawn and the patient was brought to the same-day surgery recovery unit as the anesthetic wore off. ?The findings and instructions were shared with the patient prior to discharge. [place] Bowel Prep [place] Bowel Prep Right Colon: 3 Left Colon: 3 Transverse Colon: 3 Total Score: 9
--- NOTE | 2024-06-02 06:23 | W.ANESPRE ---
General Info Date of Service Date Performed: 06/02/24 Height: 5 ft 7.5 in Weight: 51.71 kg Body Mass Index (BMI): 17.6 Surgical Procedure: Operation Date: 06/02/24 12:05 Proposed Procedure Side Surgeon prashanth Williamson MD Meds Allergies and Home Medications Allergies Allergy/AdvReac Type Severity Reaction Status Date / Time No Known Allergies Allergy Verified 06/02/24 11:23 Home Medication ?Medication ?Instructions ?Recorded naloxone 4 mg/actuation nasal 1 spray intranasal Q2-3M PRN 10/08/23 spray (Narcan) opioid overdose #2 ea morphine 15 mg immediate release 15 mg PO TID PRN pain #84 tabs 04/14/24 tablet acetaminophen 500 mg tablet 1,000 mg PO ONCE PRN 05/22/24 (Acetaminophen Extra Strength) ibuprofen 200 mg tablet 600 mg PO Q6H PRN 05/22/24 pantoprazole 40 mg tablet,delayed 40 mg PO DAILY@0730 #90 tabs 05/23/24 release folic acid 1 mg tablet 1 mg PO QAM #90 tabs 05/27/24 gabapentin 100 mg capsule 100 mg PO TID #270 caps 05/27/24 Current Visit Medications: Current Medications Generic Name Dose Route Start Last Admin Trade Name Freq PRN Reason Stop Dose Admin Ringer's Solution 1,000 mls @ 80 mls/hr 06/02/24 06:00 IV 06/02/24 23:59 INFUSION MARKO IV Miscellaneous Supplies 1 each 06/02/24 06:00 Iv Access IV 06/02/24 23:59 DIRECTED MARKO Ondansetron HCl 4 mg 06/01/24 06:53 Ondansetron 4 Mg/2 Ml Vial IVP 07/01/24 06:52 Q4H PRN PRN Nausea / Vomiting Sodium Chloride 0 ml 06/02/24 06:00 Normal Saline Flush 10 Ml Syr IV 06/02/24 23:59 PRN PRN Sodium Chloride 0 ml 06/02/24 06:00 Normal Saline 10 Ml Vial IJ 06/02/24 23:59 DIRECTED PRN Sterile Water 0 ml 06/02/24 06:00 Water,Injection,Sterile 10 Ml Vial IJ 06/02/24 23:59 DIRECTED PRN PFSH Active Problems Active Problems: Problem Status Onset Code Encounter for screening colonoscopy Acute Z12.11 Pleural mass Acute J94.8 Fibrothorax Acute J94.1 Alcoholism Acute F10.20 Elevated bilirubin Acute R17 Thoracic radiculopathy Acute M54.14 Cervical radiculopathy Acute M54.12 Loculated pleural effusion Acute J90 Dupuytren's contracture of left hand Chronic M72.0 Excessive drinking of alcohol Chronic F10.10 Chewing tobacco use Chronic Z72.0 Reducible left inguinal hernia Chronic K40.90 Surgical History Surgical History History of thoracotomy (~12/2023) VATS, that was converted to open L decortication for retained hematoma S/P vasectomy (~1997) Tobacco Smoking/Tobacco Use Status: Current every day Tobacco Type: smokeless tobacco Smokeless tobacco user: snuff Passive smoking exposure: Yes Second hand exposure: Yes Counseling given: counseling >3 minutes Alcohol Alcohol Intake: former Substance Use Substance use: Never Substance use type: does not use Vital Signs and Lab Results Vital Signs Most Recent Vital Signs in EMR: Temp Pulse Resp BP Pulse Ox 36.8 C 83 16 127/72 97 06/02/24 11:10 06/02/24 11:10 06/02/24 11:10 06/02/24 11:10 06/02/24 11:10 Lab Results Blood Type / Crossmatch: No Data to Display Complete Blood Count: No Data to Display Complete Metabolic Panel: No Data to Display Liver Function Panel: No Data to Display Coagulation Panel: No Data to Display Cardiac Panel: No Data to Display Arterial Blood Gas: No Data to Display Venous Blood Gas: No Data to Display Pancreas Panel: No Data to Display Thyroid Panel: No Data to Display Infectious Disease: No Data to Display Blood Cultures: No Data to Display Toxicology Panel: No Data to Display Anesthesia Assessment and Plan Anesthesia History Personal History: No History of Anesthesia Complications Family History: No Family History of Anesthesia Complications Exercise Tolerance Exercise Tolerance: Metabolic Equivalents>4 Cardiac & Pulmonary Exam Cardiac Exam: Normal S1/S2 Heart Sounds Pulmonary Exam: Clear Bilateral Breath Sounds Implantable Cardiac Device Does patient have a Pacemaker or an ICD?: No Airway Exam Known Difficult Airway: No Mallampati Class: 3 Mouth Opening: Normal (> 3cm) Thyromental Distance: Greater than 3 cm Neck Range of Motion: Full ROM and Limited ROM Neck Circumference: Normal Teeth Condition: Normal Dentition ASA Classification ASA Score: ASA 2 Emergency Case?: No NPO Status NPO Status: NPO Clears >2 hours, Solids >8 hours Anesthesia Plan Resuscitation Status: Full Code Anesthesia Technique: General Anesthesia Airway Planned: Natural Airway Monitors Used: Standard Monitors Preoperative Comments:: 63 yo male for colo. Sig PMHx: GERD (pantoprazole, well controlled ), radiculopathy, chewing tobacco, former EtOH. EKG: sinus rhythm.
[2024-06-02 11:10] VITALS: BP 127/72; PULSE 83; RESP 16; TEMP 36.8; O2SAT 97
[2024-06-02 11:36] VITALS: BMI 17.6
[2024-06-02] MEDS: Lactated Ringers 1,000 ML 80 ML IV (11:40)
--- NOTE | 2024-06-02 13:45 | BOWEL_PTH ---
PATIENT: Bravo Salomon LOC: [facility] U#:[id number] AGE/SX: 63/M ROOM: RE06/02/[address]: Eric Williamson MD : 1960 BED: DIS: 06/02/2024 SPEC #: [id number] RECD: 06/02/24 17:36 STATUS: STAR RE #: [id number] ALYSSIA: 06/02/24 13:[address]: Eric Williamson DEPT: Surgical Specimen RECD BY: Marylou Meyers ENTERED: 06/02/24 17:39 SP TYPE: Bowel OTHR DR: Mago Pop, RADAR TECHNICIAN Tissues: 1 - BIOPSY BOWEL 2 - BIOPSY BOWEL 3 - BIOPSY BOWEL Procedures: GROSS AND MICRO LEVEL 4 Comments: [id number]
[2024-06-02 14:07] VITALS: BP 107/71; PULSE 87; RESP 16; TEMP 36.6; O2SAT 99
--- NOTE | 2024-06-02 14:24 | W.ANESPOSTOP ---
Postoperative Evaluation Date, Time and Location Date Performed: 06/02/24 Time Performed: 14:24 Patient Location: Day Surgery Unit Vital Signs Most Recent Imported Vital Signs: Most Recent Vital Signs Temp Pulse Resp BP Pulse Ox 36.6 C 87 16 107/71 99 06/02/24 14:07 06/02/24 14:07 06/02/24 14:07 06/02/24 14:07 06/02/24 14:07 Pain Score Most Recent Pain Score: Most Recent Pain Score Pain Level 0 06/02/24 11:10 Assessment Mental Status: Awake (Alert & Oriented to Patient Baseline) Airway and Respiratory Function: Patent airway with normal (patient baseline) respiratory exam Cardiovascular Function: Hemodynamically Stable Hydration Status: Adequately Hydrated Nausea & Vomiting: No Nausea or Vomiting Pain: Pt. Denies Any Pain Peripheral Nerve Block: Patient did not receive a nerve block
[2024-06-02 14:38] VITALS: BP 125/69; PULSE 75; RESP 16; TEMP 36.5; O2SAT 99
== END 2024-06-02 14:55 | disposition home or self-care (01) ==
LOC: SUR 10:42
PROVIDERS: PCP Nurse Practitioner Family; Visit Provider Surgery
PROC: 0DJD8ZZ Inspection of Lower Intestinal Tract, Via Natural or Artificial Opening Endoscopic (ICD-10-PCS; CPT 45378; principal; 2024-06-02 12:00)
DX: Z12.11 Encounter for screening for malignant neoplasm of colon (principal); D12.5 Benign neoplasm of sigmoid colon; K57.30 Diverticulosis of large intestine without perforation or abscess without bleeding; Z80.0 Family history of malignant neoplasm of digestive organs; D12.2 Benign neoplasm of ascending colon
CPT/HCPCS: 45385; 45380; 88305; J2704

== ENCOUNTER 2025-02-20 00:17 | Outpatient (CLI) | payer MEDICARE, SELFPAY ==
[2025-02-20 14:03] LABS: Hemoglobin A1C 5.1 % (<5.7)
[2025-02-20 14:24] LABS: ALT 29 U/L (10-49); AST 37 U/L (<34); Albumin 4.6 g/dL (3.4-5.0); Alkaline Phosphatase 140 U/L (46-116); Anion Gap 6.9 mmol/L (3-11); BUN 9 mg/dL (9-23); Bilirubin, Total 0.80 mg/dL (0.2-1.2); CO2 28.4 mmol/L (20.0-31.0); Calcium 10.2 mg/dL (8.3-10.6); Chloride 99 mmol/L (98-107); Cholesterol 167 mg/dL (<200); Glucose 82 mg/dL (74-106); HDL Cholesterol 47 mg/dL (>40); Potassium 4.2 mmol/L (3.5-5.1); Sodium 134 mmol/L (136-145); Total Protein 8.1 g/dL (5.7-8.2)
[2025-02-20 19:56] LABS: Hepatitis C Ab w Rflx HCV PCR Negative (Negative)
[2025-02-20 19:58] LABS: HIV-1/2 Ag & Ab Screen Negative (Negative)
== END 2025-02-20 00:18 | disposition home or self-care (01) ==
LOC: LOS 00:17
PROVIDERS: PCP Nurse Practitioner Family; Visit Provider Nurse Practitioner Family
DX: R73.01 Impaired fasting glucose (principal); F10.20 Alcohol dependence, uncomplicated; J94.8 Other specified pleural conditions
CPT/HCPCS: 36415; 80053; 80061; 86803; 87389; 83036